=== PATIENT | female | born 1955 | race Caucasian/White ===

== ENCOUNTER 2020-11-13 05:12 | Observation (INO) ==
--- NOTE | 2020-10-23 16:20 | PAT Medication Instructions ---
Medication Instructions Date of Service October 23, 2020 Home Medications Medication Instructions Recorded Jeffy Mccracken #1 ea 10/17/20 celecoxib 200 mg capsule 200 mg PO QAM ezetimibe 10 mg tablet 10 mg PO QAM fluticasone furoate 100 mcg-vilanterol 25 mcg/dose inhalation powder 1 inh INHALATION HS hydroxychloroquine 200 mg tablet 400 mg PO QAM montelukast 10 mg tablet 10 mg PO HS tizanidine 2 mg capsule 2 mg PO BID PRN valacyclovir 500 mg tablet 500 mg PO DAILY PRN Reservital 250 mg PO DAILY ascorbic acid (vitamin C) [Vitamin C] 1 g PO DAILY calcium carbonate [Tums] 300 mg PO BID cholecalciferol (vitamin D3) [Vitamin D3] 100 mcg PO QAM coenzyme Q10 [Co Q-10] 100 mg PO DAILY glucos sul [id number]-C-Mn [Glucosamine Chondroitin] 1 cap PO DAILY loratadine-pseudoephedrine [Claritin-D 12 Hour] 1 tab PO DAILY magnesium 500 mg PO DAILY yt-cf-meqkq-lutein-herbal 293 [Alive Women's 50 Plus] 1 tab PO DAILY omega-3 fatty acids [[place] 3] 1,000 mg PO DAILY ASK your surgeon for instructions celecoxib 200 mg capsule 200 mg PO QAM ASK your prescriber and surgeon hydroxychloroquine 200 mg tablet 400 mg PO QAM STOP taking 2 weeks before surgery (or as soon as possible if surgery is within 2 weeks) Reservital 250 mg PO DAILY coenzyme Q10 [Co Q-10] 100 mg PO DAILY glucos sul [id number]-cxa-fobqz-C-Mn [Glucosamine Chondroitin] 1 cap PO DAILY ut-es-byuwp-lutein-herbal 293 [Alive Women's 50 Plus] 1 tab PO DAILY omega-3 fatty acids [[place] 3] 1,000 mg PO DAILY DO NOT take the morning of surgery tizanidine 2 mg capsule 2 mg PO BID PRN ascorbic acid (vitamin C) [Vitamin C] 1 g PO DAILY calcium carbonate [Tums] 300 mg PO BID cholecalciferol (vitamin D3) [Vitamin D3] 100 mcg PO QAM loratadine-pseudoephedrine [Claritin-D 12 Hour] 1 tab PO DAILY magnesium 500 mg PO DAILY Take morning of surgery With a small sip of water, OTHERWISE NOTHING TO EAT OR DRINK AFTER MIDNIGHT: ezetimibe 10 mg tablet 10 mg PO QAM valacyclovir 500 mg tablet 500 mg PO DAILY PRN (if needed) Take evening before surgery fluticasone furoate 100 mcg-vilanterol 25 mcg/dose inhalation powder 1 inh INHALATION HS montelukast 10 mg tablet 10 mg PO HS tizanidine 2 mg capsule 2 mg PO BID PRN (if needed) valacyclovir 500 mg tablet 500 mg PO DAILY PRN (if needed) calcium carbonate [Tums] 300 mg PO BID Other Notes If you have any questions please call us at [phone] or [phone] or [phone] or [phone]
--- NOTE | 2020-10-26 11:50 | Anesthesiology Consultation ---
Date of Service October 26, 2020 Assessment & Plan (1) Encounter for pre-operative examination: COVID screening: Per assessment on 10/26: Travel screen negative, no known COVID- 19 positive contacts or current COVID-19 related symptoms. Patient vaccinated. Surgeon arranging preop COVID testing. Awaiting results. Chart Review Chart Review: Acceptable Risk for Surgery and Patient seen in Pre Admission Testing Teaching & Discussion Pre-Anesthesia Teaching/Discussion Notes: Instructed NPO after midnight before surgery,except medications with 15 cc of water. Medication instructions pr ovided according to the PAT guidelines. History Surgery Operation Date: 11/13/20 10:45 Proposed Procedures p Left Total Hip Arthroplasty - Donte Ferguson MD Height/Weight Height: 5 ft 3 in Weight: 80.1 kg Allergies Allergy/AdvReac Type Severity Reaction Status Date / Time latex Allergy Intermediate Rash Unverified 10/26/20 12:06 bacitracin Allergy Unknown Rash Verified 10/23/20 11:19 [From Neosporin ([id number])] cefuroxime [From Ceftin] Allergy Unknown Anaphylaxis Verified 10/23/20 11:19 ciprofloxacin [From Cipro] Allergy Unknown Hives Verified 10/23/20 11:19 levofloxacin [From Levaquin] Allergy Unknown Hives Verified 10/23/20 11:19 neomycin Allergy Unknown Rash Verified 10/23/20 11:19 [From Neosporin ([id number])] polymyxin B Allergy Unknown Rash Verified 10/23/20 11:19 [From Neosporin ([id number])] sulfamethoxazole Allergy Unknown Airway Verified 10/26/20 12:06 [From Bactrim] edema/rash trimethoprim [From Bactrim] Allergy Unknown Airway Verified 10/26/20 12:06 edema/rash amoxicillin AdvReac Unknown Vomiting Verified 10/26/20 12:06 clavulanic acid AdvReac Unknown Vomiting Verified 10/26/20 12:06 [From Augmentin] lovastatin AdvReac Unknown Cramping Verified 10/26/20 12:06 of the Muscles Medications Home Medications Medication Instructions Recorded Confirmed Last Taken Wheeled Walker #1 ea 10/17/20 10/23/20 Unknown celecoxib 200 mg capsule 200 mg PO QAM 10/17/20 10/23/20 Unknown ezetimibe 10 mg tablet 10 mg PO QAM 10/17/20 10/23/20 Unknown fluticasone furoate 100 1 inh INHALATION HS 10/17/20 10/23/20 Unknown mcg-vilanterol 25 mcg/dose inhalation powder hydroxychloroquine 200 mg tablet 400 mg PO QAM 10/17/20 10/23/20 Unknown montelukast 10 mg tablet 10 mg PO HS 10/17/20 10/23/20 Unknown tizanidine 2 mg capsule 2 mg PO BID PRN 10/17/20 10/23/20 Unknown valacyclovir 500 mg tablet 500 mg PO DIRECTED PRN 10/17/20 10/26/20 Unknown ascorbic acid (vitamin C) [Vitamin 1 g PO DAILY 10/23/20 10/23/20 Unknown C] calcium carbonate [Tums] 300 mg PO BID PRN 10/23/20 10/23/20 Unknown cholecalciferol (vitamin D3) 4,000 unit PO QAM 10/23/20 10/26/20 Unknown [Vitamin D3] coenzyme Q10 [Co Q-10] 100 mg PO DIRECTED 10/23/20 10/26/20 Unknown glucos sul 7BNn-lwv-wytpk-C-Mn 2 cap PO DAILY 10/23/20 10/26/20 Unknown [Glucosamine Chondroitin] loratadine-pseudoephedrine 1 tab PO DAILY 10/23/20 10/23/20 Unknown [Claritin-D 12 Hour] magnesium 500 mg PO DAILY 10/23/20 10/23/20 Unknown dt-sy-rhzoa-lutein-herbal 293 1 tab PO DAILY 10/23/20 10/23/20 Unknown [Alive Women's 50 Plus] omega-3 fatty acids [[place] 3] 1,000 mg PO DAILY 10/23/20 10/23/20 Unknown Tylenol 500 mg PO DAILY PRN 10/26/20 10/26/20 Unknown resveratrol 250 mg PO DAILY 10/26/20 10/26/20 Unknown Past Medical History Medical History Arthritis of left hip Asthma Well controlled per pt Cervical spondylosis GERD (gastroesophageal reflux disease) Controlled Hyperlipidemia Leg length discrepancy Per records, pt unaware Mediastinal mass Anterior mediastinal mass (dx 2008) s/p regular CT scans to monitor (stable) Osteoarthritis Periodic limb movement disorder Septic bursitis Left elbow (2016) > was aspirated and + MRSA Sjogren's syndrome + hydroxychloroquine Exercise / Class Metabolic Activity III < 4 Walking/Shop/Light housework Past Surgical History Surgical History History of adenoidectomy History of cholecystectomy History of colonoscopy History of tonsillectomy History of tooth extraction Past Anesthesia History No Family Hx of Anesthesia Complications and Other ("woke up too soon" in recovery) History of PONV No Hx of PONV and No Hx of Motion Sickness Social History Smoking Status: Current every day smoker tobacco type: cigarettes Smoking cigarettes per day: 1/2 PPD (tobacco use x 42 years) Do You Dip or Chew Tobacco: No Hx Alcohol Use: No Hx Substance Use: No substance use type: does not use Review of Systems No snoring. Palpitations now much less frequent. Rare chronic, cough. Patient denies chest pain, shortness of breath, fever, chills, wheezing. Physical Exam Vital Signs VITALS BP 102/58 P 94 TEMP 98.0 SP02 97%RA RESP 18 PHYSICAL Full cervical extension range of motion. Full TMJ range of motion. TMD 3 finger breaths Mallampati Score 3 Dentition: several missing molars, + crowns (several including upper/lower si ashwini) Lungs: clear throughout to auscultation Cardiac: regular rate and rhythm, no murmurs noted Spine: normal Carotid arteries: negative bruit Extremities: no edema Lab Results Anesthesia Preop Results Results Anesthesia Widget: WBC 10.49 K/uL (4.8-10.8) 10/26/20 Hgb 15.3 g/dL (12.0-16.0) 10/26/20 Hct 46.6 % (37-47) 10/26/20 Plt 305 K/uL (130-400) 10/26/20 Na 142 mmol/L (136-145) 10/26/20 K 4.5 mmol/L (3.5-5.1) 10/26/20 Cl 110 mmol/L (98-107) H 10/26/20 CO2 26 mmol/L (21-32) 10/26/20 BUN 15 mg/dl (7-18) 10/26/20 Creat 0.76 mg/dl (0.6-1.2) 10/26/20 Glucose Level 95 mg/dl (70-99) 10/26/20 PT 9.8 Seconds (9.0-12.0) 10/26/20 PTT 30.5 Seconds (21.0-31.0) 10/26/20 INR 1.0 (0.9-1.1) 10/26/20 Blood Type B Positive 10/26/20 Antibody Screen NEGATIVE 10/26/20 Testing Electrocardiogram Date: 10/26/20 Findings: + NSR @ (90) Chest X-Ray Date: 10/26/20 No pneumothorax. No pleural effusion. Bilateral lungs remain mildly hyperinflated with flattening in the right and left hemidiaphragms. No large infiltrates or consolidative lesions are seen. Few linear densities at the left base might represent subsegmental atelectasis or scarring. Cardiomediastinal silhouette is within normal limits in size. Osseous structures: Degenerative changes of the spine. IMPRESSION: COPD pattern. Small atelectasis at the left base. No large infiltrates or consolidative lesions. Other Testing 7 day Holter monitor (09/19-09/25/20): Minimum HR 78bpm. Max HR 153bpm. Avg HR 111bpm. Predominant underlying sinus rhythm. Isolated SVEs were occasinal. No SVE Couplets or SVE triplets were present. Isolated VEs were rare. No VE couplets or VE triplets were present. CT Chest (10/30/17): Stable anterior mediastinal mass (1.5 x 2.1 cm. This mass was compared to [address] based on CT report from 2012. This was considered to be stable from [address] report). A few tiny nodular foci are new/more obvious than prior CT. Consider a follow-up chest CT in 1 year if there are high risk factors.
--- NOTE | 2020-11-06 07:23 | History and Physical Report ---
DATE OF ADMISSION: 11/13/2020 CHIEF COMPLAINT: Left hip pain. 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 She has a 5-year history of gradually increasing left hip pain and discomfort that has gotten significantly worse over the past 6 months. She was initially treated for some bursitis. She has seen several rheumatologists over time and they have been trying to manage this with medicines. This has become less successful. She had been on Plaquenil as well as Celebrex. Pain has gradually gotten worse over time. She has been through therapy, which initially helped, but has made it worse more recently. She now presents for possible surgical treatment. She has got groin pain, thigh pain radiating down to her knee. She limps more as the day goes on. PAST MEDICAL HISTORY: Significant for, 1. Rheumatoid arthritis, managed as above. 2. Depression. 3. Herpes. 4. Elevated cholesterol. 5. Asthma. 6. Sjogren syndrome. 7. Obesity. PAST SURGICAL HISTORY: Includes, 1. Tonsillectomy. 2. Cholecystectomy. ALLERGIES: MULTIPLE AND LISTED IN HER MEDICAL RECORD. CURRENT MEDICATIONS: Include, 1. Breo Ellipta. 2. Montelukast. 3. Zetia. 4. Celebrex. 5. Plaquenil. 6. Zanaflex. 7. Valacyclovir. SOCIAL HISTORY: A 64-year-old female. 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 She is . Does not drink. FAMILY HISTORY: Significant for lupus, thyroid disease, lung cancer, bowel cancer, coronary artery disease and diabetes. REVIEW OF SYSTEMS: Significant for multiple musculoskeletal aches and pains. She does have Sjogren disease. No chest pain or shortness of breath. No history of DVT or PE. No known bleeding problems. PHYSICAL EXAMINATION: GENERAL: She is a pleasant middle-aged female, looks to be in pretty good health. HEENT: Benign. NECK: Supple. No lymphadenopathy. LUNGS: Clear to auscultation. HEART: Regular rate and rhythm. ABDOMEN: Soft, nontender, nondistended. EXTREMITIES: Grossly neurovascularly intact except as follows: Examination of left hip and leg reveals the patient walks with an antalgic gait. She uses a cane. She is about 0.5 cm short on the left side compared to the right. She has a very stiff hip with any attempted internal rotation. This re-creates her pain. Negative straight leg raise. Minor tenderness over the pes tendons. Some slight lateral tenderness over the trochanteric bursa as well. No knee effusion. X-RAYS: X-rays of the left hip are reviewed. She has advanced left hip DJD. She has complete loss of her joint space. She has got cystic changes on both sides of the joint consistent with inflammatory arthritis. 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 She has failed conservative treatment and would like to have her left hip fixed. We talked about treatment options, and she would like to proceed with left hip replacement. I did tell her she has got some other issues and it is not going to fix all of her pains. She does have some fibromyalgia, which makes her response a little bit less predictable. In any case, she has got significant arthritis and I think this will make a big difference for her. PLAN: We are going to take her to the operating room and do left total hip replacement. The risks and benefits of this procedure were explained to the patient including but not limited to DVT, PE, , infection, neurological injury, vascular injury, bleeding problem, pain, limited range of motion, stiffness, failure to relieve her symptoms, incomplete relief of symptoms, need for further surgery in the future, fracture, leg length inequality, nerve palsy, etc. The patient understands and desires to proceed. Informed consent was obtained. I do think she has got some underlying knee disease, which it may or may not help. She is fully aware that she may need treatment of this in the future. We did talk to her about her medicines and she can stay on all her current rheumatological medicines. We will use aspirin for DVT prophylaxis. She apparently does have ALLERGY TO CEPHALOSPORINS and we will use vancomycin preoperatively. She is planning to be discharged to home likely with some home health. Job ID: [id number] [facility]
[2020-11-13] MEDS ORDERED: LR 500ML BOLUS, THEN 15ML/HR IV SCH (06:00)
[2020-11-13] MEDS ORDERED: GABAPENTIN 300 MG CAP PO SCH (06:00)
[2020-11-13] MEDS ORDERED: VANCOMYCIN HCL 1,250 MG in SODIUM CHLORIDE 0.9% 250 ML IV SCH ×2 (06:00→18:00)
[2020-11-13] MEDS ORDERED: TRANEXAMIC ACID 1,000 MG **IV Pre-op IV SCH (06:00)
[2020-11-13] MEDS ORDERED: Scopolamine 1 MG TDSY TD SCH (06:00)
[2020-11-13] MEDS ORDERED: FAMOTIDINE 20 MG TAB PO SCH (06:00)
[2020-11-13] MEDS ORDERED: LR 60ML/HR IV SCH (06:00)
[2020-11-13] MEDS ORDERED: ACETAMINOPHEN 500 MG TAB PO SCH (06:00)
[2020-11-13] MEDS ORDERED: BUPIVACAINE 0.5 % 5 MG/1 ML PF 10ML VIAL ONE (06:21)
[2020-11-13] MEDS ORDERED: fentaNYL citrate 100 MCG/2 ML VIAL ONE (06:23)
[2020-11-13] MEDS ORDERED: MIDAZOLAM HCL 1 MG/ML 2ML VIAL ONE (06:23)
[2020-11-13] MEDS ORDERED: MoRPHine SULFATE PF 1 MG/ML 10 ML AMP/VIAL ONE (06:23)
[2020-11-13] MEDS ORDERED: BUPIVACAINE/EPINEPHRINE 0.5% MPF 1:200,000 30 ML VIAL ONE (06:40)
--- NOTE | 2020-11-13 06:51 | History & Physical Bridge Note ---
Date of Service November 13, 2020 History & Physical Bridge Note I have examined the patient, reviewed the History & Physical and in the interval since the performance of the History & Physical I have noted the following changes of clinical significance: no changes noted
[2020-11-13] MEDS ORDERED: PHENYLEPHRINE 100MCG/ML 5ML SYR ONE (07:18)
[2020-11-13] MEDS ORDERED: ONDANSETRON INJ 2 MG/ML 2 ML VIAL ONE ×2 (07:18→09:08)
[2020-11-13] MEDS ORDERED: PROPOFOL IV EMULSION 10 MG/ML 20 ML VIAL IV ONE (07:20)
[2020-11-13] MEDS ORDERED: NALOXONE HCL 0.4 MG/1 ML VIAL/CARP IV PRN ×2 (07:23→11:19)
[2020-11-13] MEDS ORDERED: diphenhydrAMINE 50 MG/ML VIAL IV PRN (07:23)
[2020-11-13] MEDS ORDERED: LACTATED RINGER'S 500 ML IV PRN (07:23)
[2020-11-13] MEDS ORDERED: NALOXONE HCL 0.08 MG in SYRINGE 1.8 ML IV PRN (07:23)
[2020-11-13] MEDS ORDERED: NALOXONE HCL 1 MG in SODIUM CHLORIDE 0.9% 1000ML 1,000 ML IV PRN (07:23)
[2020-11-13] MEDS ORDERED: ePHEDrine sulfate 50 MG/ML AMP IV PRN (07:23)
[2020-11-13] MEDS ORDERED: SODIUM CHLORIDE 0.9% 1000ML 1,000 ML IV SCH (07:30)
[2020-11-13] MEDS ORDERED: DC INTRASPINAL MORPHINE SCH (07:30)
[2020-11-13] MEDS ORDERED: NO NARCOTICS OR SEDATIVES SCH (07:30)
[2020-11-13] MEDS ORDERED: PHENYLEPHRINE HCL 10 MG/ML VIAL ONE (07:37)
--- NOTE | 2020-11-13 08:41 | Operative Report ---
Post Operative Report Pre & Post Diagnosis Operation Date: 11/13/20 07:00 Pre-Op Diagnosis: Left Hip Osteoarthritis Post-Op Diagnosis: Left Hip Osteoarthritis I identified the patient and participated in the time-out.: Yes Procedure Operation Date: 11/13/20 07:00 Actual Procedures p Left Total Hip Arthroplasty(Left) - Donte Ferguson MD Surgeon Donte Ferguson MD Software Support Analyst MIRIAM Collins Estimated Blood Loss 200 Findings Consistent with Post-Op Diagnosis Operative findings were advanced left hip DJD. She had grade 4 euvg-fw-gwnr disease the femoral head and acetabulum. Small anterior acetabular osteophyte. Moderate-sized joint effusion. She had osteophytes around the femoral head as well. Fluids 1000 cc Specimens Left femoral head sent for pathology Drains None Anesthesia Type Spinal MAC Complications none Disposition Accompanied Patient To Recovery: Yes Disposition: Recovery Room Indications Patient is a 64-year-old female has had a several year history of increasing left hip pain discomfort that got significantly worse over the past year. She is got to the point where she had use a cane to get around. X-ray showed advanced left hip DJD. She elected proceed with surgical treatment. Description of Procedure Operative implants consist of: 1. Biomet G7 size 50 mm acetabular shell. 2. [place] hole twine reeling machine operator. 3. 6.5 cancellous acetabular screws 1 of 35 mm length 1 to 25 mm length. 4. Highly cross-linked polyethylene liner with a 50 mm outer diameter, 36 mm inner diameter with a mukherjee placed inferior and posterior. 5. Depuy [place] size 8 short neck/125 degree angle femoral neck. 6. +5/36 mm ceramic articular ball. The patient was taken to the operating, identified, placed on the operating table supine position but a contractors were properly padded. IV antibiotics tried by anesthesia team. Spinal anesthetic had been implemented holding area. Max catheter was placed in sterile fashion. The patient was then placed in the right lateral decubitus position. Axillary roll was placed. Stulberg hip positioner was used for positioning. Left hip and leg were then prepped and draped in usual sterile fashion. A posterior lateral approach of the left hip was then performed to a curvilinear incision centered over the greater trochanter. Sharp dissection got through subcutaneous tissue down to level the IT band gluteal fascia the IT band gluteal fascia then incised longitudinally in line with skin incision. The underlying greater bursa was excised. The piriformis and external rotators and the posterior hip capsule were then released from the posterior aspect hip joint as a single layer. Great care was taken throughout the procedure protect the sciatic nerve at all times. Hip was internally rotated and dislocated. Femoral neck osteotomy cut was made with Final Cut 10 mm above the lesser trochanter. Femoral head was removed and sent for pathology. The femur was retracted anteriorly. Attention drawn the acetabulum. The acetabular labrum was excised. The pulmonary fat was excised. Sequential reaming the acetabular was then performed begin with size 43 and progressing up to 49. I then did reamed a little bit with a 50 reamer and then placed a 50 mm Biomet G7 acetabular shell in about 40 degrees lateral opening and 20 degrees of anteversion. It was fixed with two 6.5 cancellous acetabular screws. A trial liner was placed. Attention drawn the femur. The proximal femur was entered with a cookie-cutter followed by canal finder. I then broached with the 8 broach. I could medially quite get that down to the Calcar. She had a very good cancellous of bony bed and we elected to just use this implant. I then trialed the hip with the 125 degree short neck angle stem and it was fully stable in full extension and external rotation flexion to 9 degrees internal rotation over 50 degrees. I did elect to place a mukherjee inferior and posterior to maximize her stability posteriorly. We elect to place these implants. All soft tissue tension seemed appropriate and leg lengths seem equal. All trial implants were removed. An apex hole twine reeling machine operator was placed but highly cross-linked polyethylene liner with a mukherjee placed inferior and posterior was placed. A DePuy size 8 KLA femoral stem with a short neck was impacted in position. A +5-36 mm ceramic articular ball was placed. Of note we did leave the system just a little proud due to the very tight fit. Hip was located once again found to be stable. Attention drawn toward closing. The wounds irrigated scope soft pulsatile lavage solution. I did inject locally with 60 cc of half percent Marcaine with epinephrine. The posterior capsule and external rotators then repaired through drill holes in the posterior trochanter with #2 Tycron suture in a single layer. The IT band gluteal fascia then closed in 1 PDS suture running fashion the subcutaneous tissues were then closed in 2 layers the deep layer #1 Vicryl suture subcutaneous tissues with 2 Dexon suture in a buried interrupted fashion the skin was closed skin joanna. Leg was then cleaned dried a sterile dressing with Xeroform, 4 x 4's, ABD pad, foam tape was applied. Patient then transferred to the recovery room in stable condition. Patient tolerated procedure well and there were no complications. Arsen Collins, my physician environmental services assistant, was present for the entire procedure. His assistance was essential and required for appropriate patient positioning, prepping and draping, surgical exposure, performing the technical details of the operation, placement the implants, closure of the wound, and placement of the sterile bandage. I attest to the content of the Intraoperative Record and any orders documented therein. Any exceptions are noted below.
--- NOTE | 2020-11-13 09:03 | XRay Report ---
XR hip 1V LT w pelvis CLINICAL HISTORY: Postop left hip arthroplasty COMPARISON: None. DISCUSSION: There are postsurgical changes of a total left hip arthroplasty. The acetabular and femor al components appear well seated. There is no dislocation. There is gas within the soft tissues consi stent with recent surgery. There are overlying skin joanna. A bladder catheter is visualized. IMPRESSION: Postsurgical changes of a total left hip arthroplasty. No evidence of dislocation. ACT 112: Negative or not required by law. Electronically signed by: Chris Harrington M.D. 11/13/2020 9:02 AM
[2020-11-13] MEDS ORDERED: ONDANSETRON INJ 2 MG/ML 2 ML VIAL IV ONE (09:13)
[2020-11-13] MEDS ORDERED: bisacodyL 10 MG SUPP PR PRN (11:19)
[2020-11-13] MEDS ORDERED: ALUMINUM/MAGNESIUM SUSP 30 ML UDC PO PRN (11:19)
[2020-11-13] MEDS ORDERED: MV MN FOLIC LUTEIN HERBAL PO SCH (11:19)
[2020-11-13] MEDS ORDERED: RESVERATROL 250 MG PO SCH (11:19)
[2020-11-13] MEDS ORDERED: ASCORBIC ACID 1000 MG PO SCH (11:19)
[2020-11-13] MEDS ORDERED: MAGNESIUM HYDROXIDE SUSP 30 ML UDC PO PRN (11:19)
[2020-11-13] MEDS ORDERED: [UNRECOGNIZED DRUG - OTHER] PO SCH (11:19)
[2020-11-13] MEDS ORDERED: VANCOMYCIN CONSULT ACTIVE PRN (11:19)
[2020-11-13] MEDS ORDERED: NON-FORMULARY MEDICATION (Glucos Sul 2kcl-Msm-Chond-C-Mn [Glucosamine Chondroitin] 550-30- PO SCH (11:19)
[2020-11-13] MEDS ORDERED: NON-FORMULARY MEDICATION (Coenzyme Q10 [Co Q-10] 100 mg Capsule) PO SCH (11:19)
[2020-11-13] MEDS ORDERED: CALCIUM CARBONATE 500 MG CHEWABLE TAB PO PRN (11:30)
--- NOTE | 2020-11-13 12:48 | Anesthesiology Progress Note ---
Date of Service November 13, 2020 Anesthesia Post Procedure Vital Signs Vital Signs: Temp Pulse Pulse Resp BP BP Pulse Ox 11/13/20 11:50 36.4 C L 84 14 102/62 99 11/13/20 11:23 36.4 C L 79 16 103/65 95 11/13/20 10:51 36.4 C L 80 16 106/66 97 11/13/20 10:25 83 16 103/59 L 97 11/13/20 10:10 36.3 C L 78 16 101/61 99 11/13/20 09:55 78 18 106/61 93 11/13/20 09:45 78 16 102/62 97 11/13/20 09:35 79 15 96/57 L 94 11/13/20 09:25 79 20 91/51 L 95 11/13/20 09:15 79 17 98/55 L 94 11/13/20 09:05 79 16 91/55 L 96 11/13/20 08:55 36.2 C L 84 20 100/54 L 95 11/13/20 08:45 87 21 98/49 L 99 11/13/20 08:35 88 22 95/51 L 99 11/13/20 08:28 36.1 C L 90 14 92/44 L 98 11/13/20 05:45 36.7 C 95 H 18 132/65 95 Pain Intensity Left Other: Pain Intensity: 0 Transfer of Care Handoff Completed per policy Notes Mental Status: alert / awake / arousable and participated in evaluation Patient Amnestic to Procedure: Yes Nausea / Vomiting: adequately controlled Pain: adequately controlled Airway Patency, RR, SpO2: stable & adequate BP & HR: stable & adequate Hydration State: stable & adequate Neuraxial Anesthesia: was administered and sensory block is resolving Anesthetic Complications: no major complications apparent and Pt Satisfied with anesthetic care
[2020-11-13] MEDS: SODIUM CHLORIDE 0.9% 1000ML 1,000 ML IV SCH (12:49)
[2020-11-13] MEDS: ASPIRIN 81 MG ECTAB PO SCH ×2 (12:55→21:58)
[2020-11-13] MEDS: CHOLECALCIFEROL 1,000 UNITS 25 MCG TAB PO SCH (12:56)
[2020-11-13] MEDS: EZETIMIBE 10 MG TABLET PO SCH (12:57)
[2020-11-13] MEDS: DOCUSATE SODIUM 100 MG CAP PO SCH ×2 (12:57→21:58)
[2020-11-13] MEDS: HYDROXYCHLOROQUINE SULFATE 200 MG TAB PO SCH (12:59)
[2020-11-13] MEDS: OMEGA-3 (PURIFIED FISH OIL) 1 GM CAP PO SCH (12:59)
[2020-11-13] MEDS: MAGNESIUM OXIDE 400 MG TAB PO SCH (13:01)
[2020-11-13] MEDS: LORATADINE 10 MG TAB PO SCH (13:01)
[2020-11-13] MEDS: PSEUDOEPHEDRINE HCL 30 MG TAB PO SCH (13:03)
[2020-11-13] MEDS: MULTIVITAMIN TAB PO SCH (13:03)
[2020-11-13] MEDS: ASCORBIC ACID 500 MG TAB PO SCH ×2 (13:07→17:18)
[2020-11-13] MEDS: KETOROLAC 30 MG/ML VIAL IV SCH ×2 (13:16→17:52)
[2020-11-13] MEDS: ACETAMINOPHEN 500 MG TAB PO SCH ×2 (14:07→21:59)
[2020-11-13] MEDS ORDERED: TRANEXAMIC ACID / 0.7% NACL 1,000 MG/100 ML BAG IV SCH (14:30)
[2020-11-13] MEDS: Scopolamine CHECK PATCH PLACEMENT SCH (16:18)
[2020-11-13] MEDS ORDERED: NICOTINE 14 MG/24 HR PATCH TD SCH (17:00)
[2020-11-13] MEDS ORDERED: MONTELUKAST SODIUM 10 MG TABLET PO SCH (21:00)
[2020-11-13] MEDS ORDERED: FLUTICASONE/VILANTEROL 100/25MCG 14 PUFFS/INHALER INH SCH (21:00)
[2020-11-13] MEDS ORDERED: SENNA 8.6 MG TAB PO SCH (21:00)
[2020-11-14] MEDS: Scopolamine CHECK PATCH PLACEMENT SCH ×2 (00:10→09:11)
[2020-11-14] MEDS: SODIUM CHLORIDE 0.9% 1000ML 1,000 ML IV SCH (00:10)
[2020-11-14] MEDS: KETOROLAC 30 MG/ML VIAL IV SCH ×3 (00:11→11:56)
[2020-11-14] MEDS ORDERED: HYDROmorphone INJ 0.5 MG/0.5 ML SYR IV PRN (01:23)
[2020-11-14] MEDS ORDERED: METOCLOPRAMIDE HCL INJ 5 MG/ML 2 ML VIAL IV PRN (01:23)
[2020-11-14] MEDS ORDERED: diphenhydrAMINE Capsule 25 MG CAP PO PRN (01:23)
[2020-11-14] MEDS ORDERED: tiZANidine HCL 4 MG TABLET PO PRN (01:23)
[2020-11-14] MEDS ORDERED: ONDANSETRON INJ 2 MG/ML 2 ML VIAL IV PRN (01:23)
[2020-11-14] MEDS: ACETAMINOPHEN 500 MG TAB PO SCH ×2 (05:39→14:23)
[2020-11-14 05:48] LABS: Basophils # (auto) 0.03 K/uL (0-0.2); Basophils % (auto) 0.3 %; Eosinophils # (auto) 0.26 K/uL (0-0.5); Eosinophils % (auto) 2.3 %; Hematocrit (blood only) 40.9 % (37-47); Hemoglobin 13.2 g/dL (12.0-16.0); Immature Granulocytes # (auto) 0.03 K/uL (0.00-0.02); Immature Granulocytes % (auto) 0.3 %; Lymphocytes # (auto) 1.91 K/uL (1.2-3.4); Lymphocytes % (auto) 17.3 %; Mean Corpuscular Hemoglobin 30.2 pg (25-34); Mean Corpuscular Hgb Conc 32.3 g/dL (32-36); Mean Corpuscular Volume 93.6 fL (80-100); Mean Platelet Volume 9.7 fL (7.4-10.4); Monocytes # (auto) 0.73 K/uL (0.11-0.59); Monocytes % (auto) 6.6 %; Neutrophils # (auto) 8.11 K/uL (1.4-6.5); Neutrophils % (auto) 73.2 %; Platelet Count 222 K/uL (130-400); RDW Coefficient of Variation 13.1 % (11.5-14.5); RDW Standard Deviation 45.4 fL (36.4-46.3); Red Blood Count 4.37 M/uL (4.2-5.4); White Blood Count 11.07 K/uL (4.8-10.8)
[2020-11-14 06:33] LABS: BUN Creatinine Ratio 21.9 (10-20); Calcium 8.2 mg/dl (8.5-10.1); Est GFR (Non-African American) 93.2 ml/min
[2020-11-14] MEDS ORDERED: dexAMETHasone 10 MG in SYRINGE 0 ML IV SCH (08:00)
[2020-11-14] MEDS: traMADol HCL 50 MG TABLET PO PRN ×2 (09:11→14:23)
[2020-11-14] MEDS: LORATADINE 10 MG TAB PO SCH (09:12)
[2020-11-14] MEDS: OMEGA-3 (PURIFIED FISH OIL) 1 GM CAP PO SCH (09:12)
[2020-11-14] MEDS: ASCORBIC ACID 500 MG TAB PO SCH (09:13)
[2020-11-14] MEDS: DOCUSATE SODIUM 100 MG CAP PO SCH (09:13)
[2020-11-14] MEDS: PSEUDOEPHEDRINE HCL 30 MG TAB PO SCH (09:13)
[2020-11-14] MEDS: CHOLECALCIFEROL 1,000 UNITS 25 MCG TAB PO SCH (09:14)
[2020-11-14] MEDS: ASPIRIN 81 MG ECTAB PO SCH (09:15)
[2020-11-14] MEDS: HYDROXYCHLOROQUINE SULFATE 200 MG TAB PO SCH (09:16)
[2020-11-14] MEDS: EZETIMIBE 10 MG TABLET PO SCH (09:16)
[2020-11-14] MEDS: MULTIVITAMIN TAB PO SCH (09:16)
[2020-11-14] MEDS: MAGNESIUM OXIDE 400 MG TAB PO SCH (09:16)
--- NOTE | 2020-11-14 12:41 | Progress Notes ---
DATE: 11/14/2020 SUBJECTIVE: A 64-year-old female postop day #1 from a left hip replacement. She is doing well. Alissa n is controlled. No chest pain or shortness of breath. Not feeling dizzy or lightheaded. OBJECTIVE: VITAL SIGNS: Temperature 36.5. Vital signs stable. GENERAL: Physical examination shows a middle-aged female. She is sitting up in her bedside chair, e ating her lunch. She looks comfortable. LUNGS: Clear to auscultation. HEART: Has a regular rate and rhythm. ABDOMEN: Soft, nontender, nondistended. EXTREMITIES: Grossly neurovascularly intact except as follows. Examination of left hip reveals the dressing to be clean, dry, and intact. Thigh is soft and supple. Hip is located. Leg lengths are e qual. She can dorsiflex and plantarflex her foot appropriately. LABORATORY DATA: Hemoglobin 13.2. Hematocrit 40.9. White cell count 11.07. Electrolytes are stabl e. ASSESSMENT: A 64-year-old female postop day #1 from left hip replacement, doing well. Pain is contr olled. Hip is located. She is neurologically intact. PLAN: 1. DVT prophylaxis include thigh-high TEDs, SCDs, and aspirin twice a day. 2. PT, OT, weightbear as tolerated. Left total hip protocol. 3. Pain control, doing well with current pain regimen. 4. Disposition: Plan to discharge to home with some home health likely later today if does okay in therapy. Job ID: [id number]
--- NOTE | 2020-11-24 10:06 | Discharge Summary ---
Date of Service November 24, 2020 Discharge Data Procedures Performed Operation Date: 11/13/20 07:00 Actual Procedures p Left Total Hip Arthroplasty(Left) - Donte Ferguson MD Hospital Course (1) Status post total replacement of left hip: 65 year old patient admitted on 11/13/20 and underwent total hip arthroplasty. She tolerated the procedure well and there were no complications. Transferred to the PACU post op and later to the orthopedic floor for further care. She was given vancomycin for antibiotic prophylaxis. She was also given ELIZABETH stockings, SCDs, and aspirin for DVT prophylaxis. Hemoglobin, hematocrit, and vital signs were monitored during her hospital stay and remained stable. Did not require any blood transfusions. There were no complications during her hospi hernan stay. By post op day #1 the patient was tolerating a regular diet, pain was reasonably controlled with oral pain medicine, and she was participating in physical therapy. On post op day #1 the patient was discharged home and set up with home health care. She was given printed discharge instructions including prescriptions for extra strength tylenol, aspirin, and tramadol. Continue physical therapy, weight bearing as tolerated. Continue hip precautions. Continue ELIZABETH stockings. Follow up approximately 2 weeks post op or sooner if there are problems or concerns. Coding Level of Care Code None Diagnoses Status post total replacement of left hip Z96.642
== END 2020-11-14 14:56 | disposition home health service (06) ==
LOC: 3E 05:12 → ASU 05:12
DX: Z79.899 Other long term (current) drug therapy; Z20.822 Contact with and (suspected) exposure to COVID-19; Q87.19 Other congenital malformation syndromes predominantly associated with short stature; M16.12 Unilateral primary osteoarthritis, left hip; E66.9 Obesity, unspecified; J45.909 Unspecified asthma, uncomplicated; M06.9 Rheumatoid arthritis, unspecified; Z68.30 Body mass index [BMI] 30.0-30.9, adult

== ENCOUNTER 2024-03-21 05:02 | Observation (INO) ==
--- NOTE | 2023-08-03 15:52 | PAT Medication Instructions ---
Medication Instructions Date of Service August 03, 2023 Home Medications Medication Instructions Recorded Jeffy Mccracken #1 ea 10/17/20 Sawyer Loaiza #1 ea 10/29/20 celecoxib 200 mg capsule (Celebrex) 200 mg PO QAM ezetimibe 10 mg tablet (Zetia) 10 mg PO QAM hydroxychloroquine 200 mg tablet (Plaquenil) 400 mg PO QAM montelukast 10 mg tablet 10 mg PO HS valacyclovir 500 mg tablet 500 mg PO DIRECTED PRN calcium carbonate 300 mg (750 mg) chewable tablet (Tums) 600 mg PO DAILY PRN coenzyme Q10 100 mg capsule (Co Q-10) 100 mg PO DIRECTED resveratrol 250 mg capsule 250 mg PO QAM Arthromax 1 tab PO QAM Cold Care-Herbal Liquid 1 - 2 tsp PO BID PRN Ehr-Herbal Liquid 1 tbsp PO .1-3 X DAILY PRN Gi Complete-Herbal Liquid 1 - 2 tsp PO .2-3 X DAILY PRN Kortislo 1 tbsp PO DAILY Prebiotic/Probiotic For 50+ 1 tab PO QAM Vitamin K2 W/Vitamin K1 1 tab PO Q OTHER DAY acetaminophen 500 mg tablet (Tylenol Extra Strength) 500 - 1,000 mg PO Q8H PRN ascorbic acid (vitamin C) 1,000 mg tablet (Vitamin C) 1 g PO DAILY betamethasone dipropionate 0.05 % topical cream 1 applic topical BID PRN calcium carbonate 600 mg-vitamin D3 12.5 mcg (500 unit) capsule (Calcium 600 with Vitamin D3) 1 cap PO BID clindamycin HCl 300 mg capsule 600 mg PO DIRECTED PRN clotrimazole-betamethasone 1 %-0.05 % topical cream 1 applic topical DIRECTED PRN furosemide 20 mg tablet (Lasix) 20 mg PO QAM PRN ketoconazole 2 % topical cream 1 applic topical DAILY PRN magnesium oxide 500 mg PO DAILY nystatin 100,000 unit/gram topical cream 1 applic topical TID PRN omega 2-oge-egs-fish oil 900 mg-1,400 mg capsule,delayed release 1 cap PO QAM triamcinolone acetonide 0.1 % topical ointment 1 applic topical BID PRN zoledronic acid 5 mg/100 mL in mannitol 5 %-water intravenous piggybck (Reclast) 1 ea IV duloxetine 60 mg capsule,delayed release 60 mg PO QPM fluticasone furoate 200 mcg-vilanterol 25 mcg/dose inhalation powder (Breo Ellipta) 1 inh inhalation DAILY multivitamin 1 tab PO QAM pseudoephedrine-DM 60 mg-30 mg capsule 1 cap PO HS PRN Continue as directed fluticasone furoate 200 mcg-vilanterol 25 mcg/dose inhalation powder (Breo Ellipta) 1 inh inhalation DAILY clindamycin HCl 300 mg capsule 600 mg PO DIRECTED PRN(if needed) valacyclovir 500 mg tablet 500 mg PO DIRECTED PRN(if needed) ASK your surgeon for instructions celecoxib 200 mg capsule (Celebrex) 200 mg PO QAM ASK your prescriber and surgeon hydroxychloroquine 200 mg tablet (Plaquenil) 400 mg PO QAM zoledronic acid 5 mg/100 mL in mannitol 5 %-water intravenous piggybck (Reclast) 1 ea IV STOP taking 2 weeks before surgery (or as soon as possible if surgery is within 2 weeks) coenzyme Q10 100 mg capsule (Co Q-10) 100 mg PO DIRECTED resveratrol 250 mg capsule 250 mg PO QAM Arthromax 1 tab PO QAM Cold Care-Herbal Liquid 1 - 2 tsp PO BID PRN Ehr-Herbal Liquid 1 tbsp PO .1-3 X DAILY PRN Gi Complete-Herbal Liquid 1 - 2 tsp PO .2-3 X DAILY PRN Kortislo 1 tbsp PO DAILY Vitamin K2 W/Vitamin K1 1 tab PO Q OTHER DAY omega 5-glk-mzq-fish oil 900 mg-1,400 mg capsule,delayed release 1 cap PO QAM STOP taking 24 hours before surgery betamethasone dipropionate 0.05 % topical cream 1 applic topical BID PRN clotrimazole-betamethasone 1 %-0.05 % topical cream 1 applic topical DIRECTED PRN ketoconazole 2 % topical cream 1 applic topical DAILY PRN nystatin 100,000 unit/gram topical cream 1 applic topical TID PRN triamcinolone acetonide 0.1 % topical ointment 1 applic topical BID PRN DO NOT take the morning of surgery calcium carbonate 300 mg (750 mg) chewable tablet (Tums) 600 mg PO DAILY PRN Prebiotic/Probiotic For 50+ 1 tab PO QAM ascorbic acid (vitamin C) 1,000 mg tablet (Vitamin C) 1 g PO DAILY calcium carbonate 600 mg-vitamin D3 12.5 mcg (500 unit) capsule (Calcium 600 with Vitamin D3) 1 cap PO BID furosemide 20 mg tablet (Lasix) 20 mg PO QAM PRN magnesium oxide 500 mg PO DAILY multivitamin 1 tab PO QAM Take morning of surgery With a small sip of water, OTHERWISE NOTHING TO EAT OR DRINK AFTER MIDNIGHT: ezetimibe 10 mg tablet (Zetia) 10 mg PO QAM acetaminophen 500 mg tablet (Tylenol Extra Strength) 500 - 1,000 mg PO Q8H PRN (if needed) Take evening before surgery montelukast 10 mg tablet 10 mg PO HS acetaminophen 500 mg tablet (Tylenol Extra Strength) 500 - 1,000 mg PO Q8H PRN (if needed) calcium carbonate 600 mg-vitamin D3 12.5 mcg (500 unit) capsule (Calcium 600 with Vitamin D3) 1 cap PO BID duloxetine 60 mg capsule,delayed release 60 mg PO QPM pseudoephedrine-DM 60 mg-30 mg capsule 1 cap PO HS PRN(if needed) Other Notes If you have any questions please call us at [phone] or [phone] or [phone] or [phone]
--- NOTE | 2023-08-06 11:02 | Anesthesiology Consultation ---
Date of Service August 06, 2023 Assessment & Plan (1) Encounter for pre-operative examination: - Infectious disease screening: Per assessment on 08/06/23: No known infectious disease contacts or current infectious disease symptoms. No noted recent Covid positive test result. - Outpatient joint assessment: Pt currently scheduled for inpatient pathway. If surgeon requests review for outpatient joint pathway, patient is not recommended candidate for outpatient joint program from anesthesia standpoint based upon available information. - S/P Left JOSÉ (11/13/20): SAB L3-4, 1 attempt at [facility] - Patient concern: Patient reports multiple joint/lumbar pain r/t hx of left knee popliteal ruptured cyst, DDD, cervical stenosis. Requests caution with positioning/transfer. - Pulmonary televisit (06/11/23): "1. From asthma perspective, patient seems to be well-controlled. I would continue with the current regimen of Breo to be used once daily. She has access to albuterol however she has not used it in past several months. 2. Patient has frequent bronchitis and feels like her chest has not cleared since treatment of last bronchitis in February. She has productive cough, weight loss and night sweats. She is immunosuppressed on background of hydroxychloroquine use along with structural lung disease. I think it is reasonable to pursue imaging of chest and microbiological data to look for active mycobacterial lung disease. I ordered sputum x3 for AFB." - Pulmonary note (08/17/23): "Received request for amberly-operative optimization from anesthesia for upcoming hip surgery. I attempted contacting patient over her home and mobile phone numbers. Could not get through to the patient.. AFB testing negative from 08/10, 08/12 and 08/13 so far. Will need a 4-6 week time for these to finalize. She has an upcoming appointment with me on 08/23. Will discuss need for further workup at that appointment based on patient's clinical course." - Spoke with Yoli with [facility] (Infection Prevention & Control) 08/18/23. She states that since AFB sputum cultures will still be preliminary at time of current DOS (if we are keeping patient as scheduled), airborne isolation precautions would be needed. Reviewed with Dr. Tam- advised to discuss fu rther with surgeon. Evelyn at surgeon's office made aware > she states that surgeon wishes to postpone surgery until AFB cultures have finalized. Made patient aware (via phone) 08/18/23 of recommendations to postpone- she voiced understanding. Chart Review Chart Review: Patient seen in Pre Admission Testing Teaching & Discussion Pre-Anesthesia Teaching/Discussion Notes: Instructed NPO after midnight before surgery,except medications with 15 cc of water. Medication instructions provided according to the PAT guidelines. History Surgery Operation Date: 08/25/23 08:50 Proposed Procedures p Right Total Hip Arthroplasty - Donte Ferguson MD Height/Weight Height: 5 ft 3 in Weight: 77.4 kg Allergies Allergy/AdvReac Type Severity Reaction Status Date / Time cefuroxime [From Ceftin] Allergy Severe Anaphylaxis/hives/Anabela Verified 08/03/23 10:28 syndrome sulfamethoxazole Allergy Severe Airway Verified 08/03/23 10:28 [From Bactrim] edema/rash trimethoprim [From Bactrim] Allergy Severe Airway Verified 08/03/23 10:28 edema/rash bacitracin Allergy Intermediate Itchy rash Verified 08/03/23 10:28 [From Neosporin ([id number])] ciprofloxacin [From Cipro] Allergy Intermediate Hives/itchy Verified 08/03/23 10:28 latex Allergy Intermediate skin Verified 08/03/23 10:28 irritation from "Band-aids" levofloxacin [From Levaquin] Allergy Intermediate Hives/itchy Verified 08/03/23 10:28 neomycin Allergy Intermediate Itchy rash Verified 08/03/23 10:28 [From Neosporin ([id number])] polymyxin B Allergy Intermediate Itchy rash Verified 08/03/23 10:28 [From Neosporin ([id number])] amoxicillin AdvReac Severe Vomiting Verified 08/03/23 10:28 clavulanic acid AdvReac Severe Vomiting Verified 08/03/23 10:28 [From Augmentin] lovastatin AdvReac Intermediate Cramping Verified 08/03/23 10:28 of the Muscles cheap metal Allergy Intermediate skin Uncoded 08/03/23 10:29 irritation Medications Home Medications Medication Instructions Recorded Confirmed Last Taken Wheeled Walker #1 ea 10/17/20 06/04/23 Unknown celecoxib 200 mg capsule (Celebrex) 200 mg PO QAM 10/17/20 08/03/23 06/15/23 ezetimibe 10 mg tablet (Zetia) 10 mg PO QAM 10/17/20 08/03/23 06/15/23 hydroxychloroquine 200 mg tablet 400 mg PO QAM 10/17/20 08/03/23 06/15/23 (Plaquenil) montelukast 10 mg tablet 10 mg PO HS 10/17/20 08/03/23 06/14/23 valacyclovir 500 mg tablet 500 mg PO DIRECTED PRN Cold 10/17/20 08/03/23 Unknown Sores calcium carbonate 300 mg (750 mg) 600 mg PO DAILY PRN Acid Reflux 10/23/20 08/03/23 11/10/20 02:00 chewable tablet (Tums) coenzyme Q10 100 mg capsule (Co 100 mg PO DIRECTED 10/23/20 08/03/23 11/02/20 10:00 Q-10) resveratrol 250 mg capsule 250 mg PO QAM 10/26/20 08/03/23 06/15/23 Sawyer Loaiza #1 ea 10/29/20 06/04/23 Unknown Arthromax 1 tab PO QAM 06/15/23 08/03/23 06/15/23 Cold Care-Herbal Liquid 1 - 2 tsp PO BID PRN NEEDED 06/15/23 08/03/23 Unknown Ehr-Herbal Liquid 1 tbsp PO .1-3 X DAILY PRN . 06/15/23 08/03/23 06/15/23 Gi Complete-Herbal Liquid 1 - 2 tsp PO .2-3 X DAILY PRN 06/15/23 08/03/23 Unknown NEEDED Kortislo 1 tbsp PO DAILY 06/15/23 08/03/23 06/15/23 Prebiotic/Probiotic For 50+ 1 tab PO QAM 06/15/23 08/03/23 06/15/23 Vitamin K2 W/Vitamin K1 1 tab PO Q OTHER DAY 06/15/23 08/03/23 06/14/23 acetaminophen 500 mg tablet 500 - 1,000 mg PO Q8H PRN 06/15/23 08/03/23 Unknown (Tylenol Extra Strength) ARTHRITIS PAIN ascorbic acid (vitamin C) 1,000 mg 1 g PO DAILY 06/15/23 08/03/23 06/15/23 tablet (Vitamin C) betamethasone dipropionate 0.05 % 1 applic topical BID PRN SKIN RASH 06/15/23 08/03/23 Unknown topical cream calcium carbonate 600 mg-vitamin 1 cap PO BID 06/15/23 08/03/23 06/15/23 08:00 D3 12.5 mcg (500 unit) capsule (Calcium 600 with Vitamin D3) clindamycin HCl 300 mg capsule 600 mg PO DIRECTED PRN 1 HR 06/15/23 08/03/23 Unknown PRIOR TO DENTAL WORK. clotrimazole-betamethasone 1 1 applic topical DIRECTED PRN 06/15/23 08/03/23 Unknown %-0.05 % topical cream GROIN & FINGERS NEEDED furosemide 20 mg tablet (Lasix) 20 mg PO QAM PRN Fluid Retention 06/15/23 08/03/23 06/13/23 ketoconazole 2 % topical cream 1 applic topical DAILY PRN RIGHT 06/15/23 08/03/23 Unknown MIDDLE FINGER, FUNGAL INFECTION magnesium oxide 500 mg PO DAILY 06/15/23 08/03/23 06/15/23 nystatin 100,000 unit/gram topical 1 applic topical TID PRN Skin 06/15/23 08/03/23 Unknown cream Irritation omega 3-pzc-nju-fish oil 900 1 cap PO QAM 06/15/23 08/03/23 06/15/23 mg-1,400 mg capsule,delayed release triamcinolone acetonide 0.1 % 1 applic topical BID PRN RED, 06/15/23 08/03/23 Unknown topical ointment RAISED & ITCHY SKIN RASH zoledronic acid 5 mg/100 mL in 1 ea IV YEARLY 06/15/23 08/03/23 03/19/23 mannitol 5 %-water intravenous piggybck (Reclast) duloxetine 60 mg capsule,delayed 60 mg PO QPM 08/03/23 08/03/23 Unknown release fluticasone furoate 200 1 inh inhalation DAILY 08/03/23 08/03/23 Unknown mcg-vilanterol 25 mcg/dose inhalation powder (Breo Ellipta) multivitamin 1 tab PO QAM 08/03/23 08/03/23 Unknown pseudoephedrine-DM 60 mg-30 mg 1 cap PO HS PRN Cough 08/03/23 08/03/23 Unknown capsule Past Medical History Medical History Anxiety and depression Arthritis Asthma Cervical spinal stenosis Cervical spondylosis Chronic cough COPD (chronic obstructive pulmonary disease) Per S records Degenerative disc disease DJD (degenerative joint disease) of knee GERD (gastroesophageal reflux disease) Hyperlipidemia Mediastinal mass Anterior mediastinal mass (dx 2008) s/p CT scans to monitor Stable, most recent CTS 06/2023- enlarged lymph node in the anterior mediastium remains unchanged and likely benign compared to 03/2021 CTS per report Osteoarthritis Palpitations Occasional palpitations, 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)- triggered events correlated to sinus rhythm and sensed PACs Periodic limb movement disorder Restless leg syndrome Septic bursitis Left elbow (2016) > was aspirated and + MRSA Sjogren's syndrome + hydroxychloroquine Exercise / Class Metabolic Activity II 4-5 Yardwork/Stairs/Walk up hill (one FS: No CP, rare mild SOB) Past Family History Family History Other No family history of adverse response to anesthesia Past Surgical History Surgical History History of cholecystectomy History of colonoscopy History of tonsillectomy and adenoidectomy History of tooth extraction History of total hip arthroplasty Left JOSÉ (11/13/20): SAB L3-4, 1 attempt at [facility] Past Anesthesia History No Hx of Anesthesia Complications and No Family Hx of Anesthesia Complications History of PONV No Hx of PONV and Hx of Motion Sickness (Rare) Social History Smoking Status: Current every day smoker tobacco type: cigarettes Smoking cigarettes per day: 10 cig daily Do You Dip or Chew Tobacco: No Hx Alcohol Use: No Hx Substance Use: No substance use type: does not use Review of Systems Occasional palpitations. Chronic cough. Patient denies chest pain, shortness of breath, fever, chills, wheezing. Physical Exam Vital Signs BP 102/58 (manual cuff) P 87 TEMP 98.2 SP02 96%RA RESP 16 Physical Full cervical extension range of motion. Full TMJ range of motion. TMD 3 finger breaths Mallampati Score 3 Dentition: + missing (molars), + crowns Lungs: clear throughout to auscultation Cardiac: regular rate and rhythm, no murmurs noted Spine: normal Carotid arteries: negative bruit Extremities: no LE edema Lab Results Anesthesia Preop Results Results Anesthesia Widget: WBC 13.20 K/ul (4.8-10.8) H 08/06/23 Hgb 14.3 g/dl (12.0-16.0) 08/06/23 Hct 44.4 % (37.0-47.0) 08/06/23 Plt 279 K/uL (130-400) 08/06/23 Na 138 mmol/L (136-145) 08/06/23 K 4.2 mmol/L (3.5-5.1) 08/06/23 Cl 107 mmol/L (98-107) 08/06/23 CO2 24 mmol/L (21-32) 08/06/23 BUN 21 mg/dl (6-23) 08/06/23 Creat 0.80 mg/dl (0.6-1.2) 08/06/23 Glucose Level 85 mg/dl (70-99(Fasting)) 08/06/23 PT 10.4 Seconds (9.0-12.0) 08/06/23 PTT 33 Seconds (21-31) H 08/06/23 INR 0.9 (0.9-1.1) 08/06/23 Blood Type B Positive 08/06/23 Antibody Screen NEGATIVE 08/06/23 Testing Laboratory Results Surgeon made aware of elevated WBC* Pulmonary note (08/17/23): "AFB testing negative from 08/10, 08/12 and 08/13 so far.. Will need a 4-6 week time for these to finalize" Electrocardiogram Date: 08/06/23 NSR at 84bpm. NS STA. No significant change compared to 10/26/2020 per senior system operator comparison. Other Testing 7 day Holter monitor Date: 09/19-09/25/20 Minimum HR 78bpm. Max HR 153bpm. Avg HR 111bpm. Predominant underlying sinus rhythm. Isolated SVEs were occasinal. No SVE Couplets or SVE triplets were present. Isolated VEs were rare. No VE couplets or VE triplets were present. CT Chest Date: 10/30/2017 Stable anterior mediastinal mass (1.5 x 2.1 cm. This mass was compared to [address] based on CT report from 2012. This was considered to be stable from [address] report). A few tiny nodular foci are new/more obvious than prior CT. Consider a follow-up chest CT in 1 year if there are high risk factors. Chest CT Date: 04/03/2021 Tree-in-bud nodules predominantly in the apical right upper lobe and superior segment right lower lobe, slightly more prominent in size and number compared to prior study 10/30/2017, likely chronic infectious or inflammatory process of the small airways such as atypical mycobacterial infection. Approximate 2 x 1.4 cm soft tissue nodule in the anterior mediastinum is stable compared to 10/30/2017, likely benign enlarged lymph node. Chest CT Date: 07/17/2023 Mild atherosclerotic changes. An enlarged lymph node in the anterior mediastinum remains unchanged and likely benign. The patient is status postcholecystectomy. Changes likely representing bronchiolitis and/or postinfectious changes. A few additional discrete sub-6 mm nodules in both lungs appear unchanged. No suspicious nodules are seen. Degenerative changes of the spine. Mild emphysematous changes. A focal area of subpleural nodular scarring is seen in the periphery of the right upper lobe, along the major fissure.
--- NOTE | 2023-09-13 12:09 | History & Physical Report ---
Date of Service September 13, 2023 Assessment & Plan (1) Arthritis of right hip: 67-year-old female status post a left hip replacement 3 years ago with advanced right hip DJD. She is got some knee arthritis as well but the right hip is by far the worst. She is failed conservative treatment like to have her right hip replaced. Plan: Orgran taken to the operating do right total hip placement. The risks Mente this procedure explained the patient clued but not limited to DVT PE infection neurological and vascular bleeding palm pain limb range of motion sepsis fairly her symptoms incomplete relief of symptoms need for further surgery in the future. The patient understands and desires to proceed. Inf ormed consent was obtained. As far as discharge plan she is planning to be discharged to home with home health. Her can assist in her care. Will plan on DVT prophylaxis including thigh-high teds, SCDs, aspirin twice a day. (2) Left knee DJD: (3) Status post total replacement of left hip: (4) Arthritis of left hip: (5) DJD (degenerative joint disease) of knee: History of Present Illness Chief Complaint: . Persistent and progressive right hip pain Primary Care Provider: Clinton Grimes MD . Patient is a 67-year-old female who now presents for surgical treatment right hip. 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 She did have her left hip replaced back in October 2020 and is done well with this. Over the past year she developed increased pain discomfort in her right hip. She describes groin pain and thigh pain. She limps all the time. The more she is up and onto the more painful it is in the more she limps. Pains become more debilitating. She had tempora response to an injection. She is ready to have her hip fixed. Allergies Allergy/AdvReac Type Severity Reaction Status Date / Time cefuroxime [From Ceftin] Allergy Severe Anaphylaxis/hives/Anabela Verified 08/03/23 10:28 syndrome sulfamethoxazole Allergy Severe Airway Verified 08/03/23 10:28 [From Bactrim] edema/rash trimethoprim [From Bactrim] Allergy Severe Airway Verified 08/03/23 10:28 edema/rash bacitracin Allergy Intermediate Itchy rash Verified 08/03/23 10:28 [From Neosporin ([id number])] ciprofloxacin [From Cipro] Allergy Intermediate Hives/itchy Verified 08/03/23 10:28 latex Allergy Intermediate skin Verified 08/03/23 10:28 irritation from "Band-aids" levofloxacin [From Levaquin] Allergy Intermediate Hives/itchy Verified 08/03/23 10:28 neomycin Allergy Intermediate Itchy rash Verified 08/03/23 10:28 [From Neosporin ([id number])] polymyxin B Allergy Intermediate Itchy rash Verified 08/03/23 10:28 [From Neosporin ([id number])] amoxicillin AdvReac Severe Vomiting Verified 08/03/23 10:28 clavulanic acid AdvReac Severe Vomiting Verified 08/03/23 10:28 [From Augmentin] lovastatin AdvReac Intermediate Cramping Verified 08/03/23 10:28 of the Muscles cheap metal Allergy Intermediate skin Uncoded 08/03/23 10:29 irritation Home Medications Medication Instructions Recorded Confirmed Type Wheeled Walker #1 ea 10/17/20 06/04/23 Rx celecoxib 200 mg capsule (Celebrex) 200 mg PO QAM 10/17/20 08/03/23 History ezetimibe 10 mg tablet (Zetia) 10 mg PO QAM 10/17/20 08/03/23 History hydroxychloroquine 200 mg tablet 400 mg PO QAM 10/17/20 08/03/23 History (Plaquenil) montelukast 10 mg tablet 10 mg PO HS 10/17/20 08/03/23 History valacyclovir 500 mg tablet 500 mg PO DIRECTED PRN Cold 10/17/20 08/03/23 History Sores calcium carbonate (Tums) 600 mg PO DAILY PRN Acid Reflux 10/23/20 08/03/23 History coenzyme Q10 100 mg capsule (Co 100 mg PO DIRECTED 10/23/20 08/03/23 History Q-10) resveratrol 250 mg capsule 250 mg PO QAM 10/26/20 08/03/23 History Sawyer Loaiza #1 ea 10/29/20 06/04/23 Rx Arthromax 1 tab PO QAM 06/15/23 08/03/23 History Cold Care-Herbal Liquid 1 - 2 tsp PO BID PRN NEEDED 06/15/23 08/03/23 History Ehr-Herbal Liquid 1 tbsp PO .1-3 X DAILY PRN . 06/15/23 08/03/23 History Gi Complete-Herbal Liquid 1 - 2 tsp PO .2-3 X DAILY PRN 06/15/23 08/03/23 History NEEDED Kortislo 1 tbsp PO DAILY 06/15/23 08/03/23 History Prebiotic/Probiotic For 50+ 1 tab PO QAM 06/15/23 08/03/23 History Vitamin K2 W/Vitamin K1 1 tab PO Q OTHER DAY 06/15/23 08/03/23 History acetaminophen 500 mg tablet 500 - 1,000 mg PO Q8H PRN 06/15/23 08/03/23 History (Tylenol Extra Strength) ARTHRITIS PAIN ascorbic acid (vitamin C) 1,000 mg 1 g PO DAILY 06/15/23 08/03/23 History tablet (Vitamin C) betamethasone dipropionate 0.05 % 1 applic topical BID PRN SKIN RASH 06/15/23 08/03/23 History topical cream calcium carbonate 600 mg-vitamin 1 cap PO BID 06/15/23 08/03/23 History D3 12.5 mcg (500 unit) capsule (Calcium 600 with Vitamin D3) clindamycin HCl 300 mg capsule 600 mg PO DIRECTED PRN 1 HR 06/15/23 08/03/23 History PRIOR TO DENTAL WORK. clotrimazole-betamethasone 1 1 applic topical DIRECTED PRN 06/15/23 08/03/23 History %-0.05 % topical cream GROIN & FINGERS NEEDED furosemide 20 mg tablet (Lasix) 20 mg PO QAM PRN Fluid Retention 06/15/23 History ketoconazole 2 % topical cream 1 applic topical DAILY PRN RIGHT 06/15/23 08/03/23 History MIDDLE FINGER, FUNGAL INFECTION magnesium oxide 500 mg PO DAILY 06/15/23 08/03/23 History nystatin 100,000 unit/gram topical 1 applic topical TID PRN Skin 06/15/23 08/03/23 History cream Irritation omega 2-egm-mfr-fish oil 900 1 cap PO QAM 06/15/23 08/03/23 History mg-1,400 mg capsule,delayed release triamcinolone acetonide 0.1 % 1 applic topical BID PRN RED, 06/15/23 08/03/23 History topical ointment RAISED & ITCHY SKIN RASH zoledronic acid 5 mg/100 mL in 1 ea IV YEARLY 06/15/23 08/03/23 History mannitol 5 %-water intravenous piggybck (Reclast) duloxetine 60 mg capsule,delayed 60 mg PO QPM 08/03/23 08/03/23 History release fluticasone furoate 200 1 inh inhalation DAILY 08/03/23 08/03/23 History mcg-vilanterol 25 mcg/dose inhalation powder (Breo Ellipta) multivitamin 1 tab PO QAM 08/03/23 08/03/23 History pseudoephedrine-DM 60 mg-30 mg 1 cap PO HS PRN Cough 08/03/23 08/03/23 History capsule Wheeled Walker #1 ea 09/08/23 Rx Past Med/Surg History Medical History Palpitations Occasional palpitations, s/p pvc monitor (2020)- triggered events correlated to sinus rhythm and sensed PACs COPD (chronic obstructive pulmonary disease) Per [facility] records Chronic cough Cervical spinal stenosis Degenerative disc disease Arthritis Anxiety and depression Restless leg syndrome DJD (degenerative joint disease) of knee Septic bursitis Left elbow (2016) > was aspirated and + MRSA Cervical spondylosis Mediastinal mass Anterior mediastinal mass (dx 2008) s/p CT scans to monitor Stable, most recent CTS 06/2023- enlarged lymph node in the anterior mediastium remains unchanged and likely benign compared to 03/2021 CTS per report Sjogren's syndrome + hydroxychloroquine Osteoarthritis GERD (gastroesophageal reflux disease) Hyperlipidemia Periodic limb movement disorder Asthma Surgical History History of total hip arthroplasty Left JOSÉ (11/13/20): SAB L3-4, 1 attempt at [facility] History of tonsillectomy and adenoidectomy History of colonoscopy History of cholecystectomy History of tooth extraction Family History Other No family history of adverse response to anesthesia Social History Smoking Status: Current every day smoker Tobacco Type: Cigarettes Cigarettes Per Day: 10 cig daily; Second Hand Exposure: Yes; Do You Dip or Chew Tobacco: No; Hx Alcohol Use: No Hx Substance Use: No Preferred Language: Prydeinig Communication Ability: Effective Tool Design Checker Required: No Beliefs That Will Affect Care: None marital status: Current Living Situation: Spouse Feels Safe at Home: Yes Safety Concerns: Feels Safe At This Time Assistive Devices: Cane, Glasses and Walker Review of Systems All systems reviewed & are unremarkable except as noted in HPI & below. Physical Exam . Physical examination is a pleasant middle-aged female. She looks to be in reasonably good health. Examination of the right hip and leg reveal patient walks with a bit of an antalgic gait. Including limps on the right side. She is about half centimeter shorter on the right compared to the left. She got very stiff hip with internal rotation to -5. This does recreate her pain. Negative straight leg raise. Examination of the left hip reveals a well-healed incision. She got painless hip motion. Constitutional WD/WN, vitals as above Neck trachea midline, no thyromegaly Respiratory normal respiratory effort, lungs clear to auscultation Cardiovascular RRR, no murmur, no edema Gastrointestinal (Abdomen) normal bowel sounds, soft, nontender, no hepatosplenomegaly Results & Data Results & Data Laboratory Results . Diagnostic Findings . X-rays of the right hip were reviewed. Shows advanced right hip arthritis. She got complete loss of joint space. Got cystic changes on both sides of the joint. The left hip replacement looks to be in good position without signs of problems. Looks to be well ingrown. PG Care Time/CCT Total # of Minutes Spent Total Time Spent with Patient: Total time spent is greater than 50% in coordination of care (as documented) at patient's floor/unit and/or counseling patient: Coding Level of Care Code None Diagnoses Arthritis of right hip M16.11 Left knee DJD M17.12 Status post total replacement of left hip Z96.642 Arthritis of left hip M16.12 DJD (degenerative joint disease) of knee M17.10
--- NOTE | 2024-03-09 12:21 | PAT Medication Instructions ---
Medication Instructions Date of Service March 09, 2024 Home Medications Medication Instructions Recorded Wheeled Walker #1 ea 10/17/20 Sawyer Hose #1 ea 10/29/20 Wheeled Walker #1 ea 09/08/23 celecoxib 200 mg capsule (Celebrex) 200 mg PO QAM ezetimibe 10 mg tablet (Zetia) 10 mg PO QAM hydroxychloroquine 200 mg tablet (Plaquenil) 400 mg PO QAM montelukast 10 mg tablet 10 mg PO HS valacyclovir 500 mg tablet 500 mg PO DIRECTED PRN calcium carbonate (Tums) 600 mg PO UD PRN coenzyme Q10 100 mg capsule (Co Q-10) 100 mg PO DIRECTED resveratrol 250 mg capsule 250 mg PO QAM Arthromax 2 tab PO QAM Cold Care-Herbal Liquid 1 - 2 tsp PO BID PRN Ehr-Herbal Liquid 1 tbsp PO .1-3 X DAILY PRN Gi Complete-Herbal Liquid 1 - 2 tsp PO .2-3 X DAILY PRN Kortislo 1 tbsp PO UD Prebiotic/Probiotic For 50+ 1 tab PO QAM Vitamin K2 W/Vitamin K1 1 tab PO Q OTHER DAY acetaminophen 500 mg tablet (Tylenol Extra Strength) 500 - 1,000 mg PO Q8H PRN ascorbic acid (vitamin C) 1,000 mg tablet (Vitamin C) 1 g PO DAILY betamethasone dipropionate 0.05 % topical cream 1 applic topical BID PRN SKIN calcium 600 mg (as carbonate)-vitamin D3 12.5 mcg (500 unit) capsule (Calcium with Vit D3) 1 cap PO BID clindamycin HCl 300 mg capsule 600 mg PO DIRECTED PRN clotrimazole-betamethasone 1 %-0.05 % topical cream 1 applic topical DIRECTED PRN furosemide 20 mg tablet (Lasix) 20 mg PO QAM PRN ketoconazole 2 % topical cream 1 applic topical DAILY PRN magnesium oxide 500 mg PO DAILY nystatin 100,000 unit/gram topical cream 1 applic topical TID PRN omega 7-zye-oyc-fish oil 900 mg-1,400 mg capsule,delayed release 1 cap PO QAM triamcinolone acetonide 0.1 % topical ointment 1 applic topical BID PRN zoledronic acid 5 mg/100 mL in mannitol 5 %-water intravenous piggybck (Reclast) 1 ea IV YEARLY duloxetine 60 mg capsule,delayed release 60 mg PO QPM fluticasone furoate 200 mcg-vilanterol 25 mcg/dose inhalation powder (Breo Ellipta) 1 inh inhalation DAILY multivitamin 1 tab PO QAM 08/03/23 [History Confirmed 03/01/24] pseudoephedrine-DM 60 mg-30 mg capsule 1 cap PO HS PRN albuterol sulfate 90 mcg/actuation aerosol inhaler 1 - 2 inh inhalation Q4H PRN azithromycin 500 mg tablet 500 mg PO 3XWK ethambutol 400 mg tablet 1,800 mg PO 3XWK fluticasone propionate 50 mcg/actuation nasal spray,suspension 2 spray intranasal UD PRN naltrexone 4.5 mg capsule 4.5 mg PO HS rifabutin 150 mg capsule 300 mg PO 3XWK Continue as directed valacyclovir 500 mg tablet 500 mg PO DIRECTED PRN(if needed) clindamycin HCl 300 mg capsule 600 mg PO DIRECTED PRN(if needed) fluticasone propionate 50 mcg/actuation nasal spray,suspension 2 spray intranasal UD PRN(if needed) fluticasone furoate 200 mcg-vilanterol 25 mcg/dose inhalation powder (Breo El lipta) 1 inh inhalation DAILY azithromycin 500 mg tablet 500 mg PO 3XWK rifabutin 150 mg capsule 300 mg PO 3XWK ethambutol 400 mg tablet 1,800 mg PO 3XWK ASK your surgeon for instructions celecoxib 200 mg capsule (Celebrex) 200 mg PO QAM ASK your prescriber and surgeon hydroxychloroquine 200 mg tablet (Plaquenil) 400 mg PO QAM zoledronic acid 5 mg/100 mL in mannitol 5 %-water intravenous piggybck (Reclast) 1 ea IV YEARLY STOP taking 2 weeks before surgery (or as soon as possible if surgery is within 2 weeks) coenzyme Q10 100 mg capsule (Co Q-10) 100 mg PO DIRECTED resveratrol 250 mg capsule 250 mg PO QAM Arthromax 2 tab PO QAM Cold Care-Herbal Liquid 1 - 2 tsp PO BID PRN Ehr-Herbal Liquid 1 tbsp PO .1-3 X DAILY PRN Gi Complete-Herbal Liquid 1 - 2 tsp PO .2-3 X DAILY PRN Kortislo 1 tbsp PO UD Vitamin K2 W/Vitamin K1 1 tab PO Q OTHER DAY omega 4-trb-zdi-fish oil 900 mg-1,400 mg capsule,delayed release 1 cap PO QAM STOP taking 24 hours before surgery betamethasone dipropionate 0.05 % topical cream 1 applic topical BID PRN SKIN clotrimazole-betamethasone 1 %-0.05 % topical cream 1 applic topical DIRECTED PRN ketoconazole 2 % topical cream 1 applic topical DAILY PRN nystatin 100,000 unit/gram topical cream 1 applic topical TID PRN triamcinolone acetonide 0.1 % topical ointment 1 applic topical BID PRN DO NOT take the morning of surgery calcium carbonate (Tums) 600 mg PO UD PRN Prebiotic/Probiotic For 50+ 1 tab PO QAM ascorbic acid (vitamin C) 1,000 mg tablet (Vitamin C) 1 g PO DAILY calcium 600 mg (as carbonate)-vitamin D3 12.5 mcg (500 unit) capsule (Calcium with Vit D3) 1 cap PO BID furosemide 20 mg tablet (Lasix) 20 mg PO QAM PRN magnesium oxide 500 mg PO DAILY Take morning of surgery With a small sip of water, OTHERWISE NOTHING TO EAT OR DRINK AFTER MIDNIGHT: ezetimibe 10 mg tablet (Zetia) 10 mg PO QAM acetaminophen 500 mg tablet (Tylenol Extra Strength) 500 - 1,000 mg PO Q8H PRN (if needed) albuterol sulfate 90 mcg/actuation aerosol inhaler 1 - 2 inh inhalation Q4H PRN (use if needed; please bring with you to hospital day of surgery if possible) Take evening before surgery montelukast 10 mg tablet 10 mg PO HS acetaminophen 500 mg tablet (Tylenol Extra Strength) 500 - 1,000 mg PO Q8H PRN (if needed) calcium 600 mg (as carbonate)-vitamin D3 12.5 mcg (500 unit) capsule (Calcium with Vit D3) 1 cap PO BID duloxetine 60 mg capsule,delayed release 60 mg PO QPM pseudoephedrine-DM 60 mg-30 mg capsule 1 cap PO HS PRN(if needed) albuterol sulfate 90 mcg/actuation aerosol inhaler 1 - 2 inh inhalation Q4H PRN (if needed) naltrexone 4.5 mg capsule 4.5 mg PO HS Other Notes If you have any questions please call us at [phone] or [phone] or [phone] or [phone]
--- NOTE | 2024-03-10 13:48 | Anesthesiology Consultation ---
Date of Service March 10, 2024 Assessment & Plan (1) Encounter for pre-operative examination: Plan - awaiting surgeon's documentation in response to below [facility] pulmonology notation. - pulmonology office visit 01/26/24 [facility]: "...Still having cough without acute change...will need PFT and will perform after controlling her cough and will reassess during her next follow-up visit...Needs aggressive airway clearance with incentive spirometry, flutter valve and she will use those as much as she can. 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 I had talked to her orthopedic surgeon Dr. Ferguson ([facility]) during her last follow-up visit and as per him , this operation is elective so, it would be better do after clearing the Mycobacterium infection. But she needs to continue her antibiotic during perioperative..." From 08/06/23 PAT visit: - Outpatient joint assessment: Pt currently scheduled for inpatient pathway. If surgeon requests review for outpatient joint pathway, patient is not recommended candidate for outpatient joint program from anesthesia standpoint based upon available information. - S/P Left JOSÉ (11/13/20): SAB L3-4, [address] [facility] - Patient concern: Patient reports osteoporosis and multiple joint/lumbar pain r/t hx of left knee popliteal ruptured cyst, DDD, cervical stenosis. Requests caution with positioning/transfer. Chart Review Chart Review: Pending: Refer to Additional Notes / Consult section and Patient seen in Pre Admission Testing Teaching & Discussion Pre-Anesthesia Teaching/Discussion Notes: Instructed NPO after midnight before surgery, except medications with 15 cc of water. Medication instructions provided according to the PAT guidelines. History Surgery Operation Date: 10/15/23 08:50 Proposed Procedures p Right Total Hip Arthroplasty - Donte Ferguson MD Operation Date: 03/21/24 10:40 Proposed Procedures p Right Total Hip Arthroplasty - Donte Ferguson MD Height/Weight Height: 5 ft 3 in Weight: 79.3 kg Allergies Allergy/AdvReac Type Severity Reaction Status Date / Time cefuroxime [From Ceftin] Allergy Severe Anaphylaxis/hives/Anabela Verified 03/01/24 09:56 syndrome sulfamethoxazole Allergy Severe Airway Verified 03/01/24 09:56 [From Bactrim] edema/rash trimethoprim [From Bactrim] Allergy Severe Airway Verified 03/01/24 09:56 edema/rash bacitracin Allergy Unknown Itchy rash Verified 03/01/24 09:56 [From Neosporin ([id number])] ciprofloxacin [From Cipro] Allergy Unknown Hives/itchy Verified 03/01/24 09:56 latex Allergy Unknown skin Verified 03/01/24 09:56 redness from "Band-aids" levofloxacin [From Levaquin] Allergy Unknown Hives/itchy Verified 03/01/24 09:56 neomycin Allergy Unknown Itchy rash Verified 03/01/24 09:56 [From Neosporin ([id number])] polymyxin B Allergy Unknown Itchy rash Verified 03/01/24 09:56 [From Neosporin ([id number])] amoxicillin AdvReac Unknown Vomiting Verified 03/01/24 09:56 clavulanic acid AdvReac Unknown Vomiting Verified 03/01/24 09:56 [From Augmentin] lovastatin AdvReac Unknown Cramping Verified 03/01/24 09:56 of the Muscles cheap metal Allergy Unknown skin Uncoded 03/01/24 09:56 irritation/skin discoloration. Medications Home Medications Medication Instructions Recorded Confirmed Last Taken Wheeled Walker #1 ea 10/17/20 03/01/24 Unknown celecoxib 200 mg capsule (Celebrex) 200 mg PO QAM 10/17/20 03/01/24 06/15/23 ezetimibe 10 mg tablet (Zetia) 10 mg PO QAM 10/17/20 03/01/24 06/15/23 hydroxychloroquine 200 mg tablet 400 mg PO QAM 10/17/20 03/01/24 06/15/23 (Plaquenil) montelukast 10 mg tablet 10 mg PO HS 10/17/20 03/01/24 06/14/23 valacyclovir 500 mg tablet 500 mg PO DIRECTED PRN Cold 10/17/20 03/01/24 Unknown Sores calcium carbonate (Tums) 600 mg PO UD PRN Acid Reflux 10/23/20 03/01/24 11/10/20 02:00 coenzyme Q10 100 mg capsule (Co 100 mg PO DIRECTED 06/06/1403/01/24 11/02/20 10:00 Q-10) resveratrol 250 mg capsule 250 mg PO QAM 10/26/20 03/01/24 06/15/23 Sawyer Loaiza #1 ea 10/29/20 03/01/24 Unknown Arthromax 2 tab PO QAM 06/15/23 03/01/24 06/15/23 Cold Care-Herbal Liquid 1 - 2 tsp PO BID PRN NEEDED 06/15/23 03/01/24 Unknown Ehr-Herbal Liquid 1 tbsp PO .1-3 X DAILY PRN . 06/15/23 03/01/24 06/15/23 Gi Complete-Herbal Liquid 1 - 2 tsp PO .2-3 X DAILY PRN 06/15/23 03/01/24 Unknown NEEDED Kortislo 1 tbsp PO UD 06/15/23 03/01/24 06/15/23 Prebiotic/Probiotic For 50+ 1 tab PO QAM 06/15/23 03/01/24 06/15/23 Vitamin K2 W/Vitamin K1 1 tab PO Q OTHER DAY 06/15/23 03/01/24 06/14/23 acetaminophen 500 mg tablet 500 - 1,000 mg PO Q8H PRN 06/15/23 03/01/24 Unknown (Tylenol Extra Strength) ARTHRITIS PAIN ascorbic acid (vitamin C) 1,000 mg 1 g PO DAILY 06/15/23 03/01/24 06/15/23 tablet (Vitamin C) betamethasone dipropionate 0.05 % 1 applic topical BID PRN SKIN RASH 06/15/23 03/01/24 Unknown topical cream calcium 600 mg (as 1 cap PO BID 06/15/23 03/01/24 06/15/23 08:00 carbonate)-vitamin D3 12.5 mcg (500 unit) capsule (Calcium with Vit D3) clindamycin HCl 300 mg capsule 600 mg PO DIRECTED PRN 1 HR 06/15/23 03/01/24 Unknown PRIOR TO DENTAL WORK. clotrimazole-betamethasone 1 1 applic topical DIRECTED PRN 06/15/23 03/01/24 Unknown %-0.05 % topical cream GROIN & FINGERS NEEDED furosemide 20 mg tablet (Lasix) 20 mg PO QAM PRN Fluid Retention 06/15/23 03/01/24 06/13/23 ketoconazole 2 % topical cream 1 applic topical DAILY PRN RIGHT 06/15/23 03/01/24 Unknown MIDDLE FINGER, FUNGAL INFECTION magnesium oxide 500 mg PO DAILY 06/15/23 03/01/24 06/15/23 nystatin 100,000 unit/gram topical 1 applic topical TID PRN Skin 06/15/23 03/01/24 Unknown cream Irritation omega 9-xwy-mfa-fish oil 900 1 cap PO QAM 06/15/23 03/01/24 06/15/23 mg-1,400 mg capsule,delayed release triamcinolone acetonide 0.1 % 1 applic topical BID PRN RED, 06/15/23 03/01/24 Unknown topical ointment RAISED & ITCHY SKIN RASH zoledronic acid 5 mg/100 mL in 1 ea IV YEARLY 06/15/23 03/01/24 03/19/23 mannitol 5 %-water intravenous piggybck (Reclast) duloxetine 60 mg capsule,delayed 60 mg PO QPM 08/03/23 03/01/24 Unknown release fluticasone furoate 200 1 inh inhalation DAILY 08/03/23 03/01/24 Unknown mcg-vilanterol 25 mcg/dose inhalation powder (Breo Ellipta) multivitamin 1 tab PO QAM 08/03/23 03/01/24 Unknown pseudoephedrine-DM 60 mg-30 mg 1 cap PO HS PRN Cough 08/03/23 03/01/24 Unknown capsule Wheeled Walker #1 ea 09/08/23 03/01/24 Unknown albuterol sulfate 90 mcg/actuation 1 - 2 inh inhalation Q4H PRN 03/01/24 03/01/24 Unknown aerosol inhaler Dyspnea azithromycin 500 mg tablet 500 mg PO 3XWK 03/01/24 03/01/24 Unknown ethambutol 400 mg tablet 1,800 mg PO 3XWK 03/01/24 03/01/24 Unknown fluticasone propionate 50 2 spray intranasal UD PRN 03/01/24 03/01/24 Unknown mcg/actuation nasal Congestion spray,suspension naltrexone 4.5 mg capsule 4.5 mg PO HS 03/01/24 03/01/24 Unknown rifabutin 150 mg capsule 300 mg PO 3XWK 03/01/24 03/01/24 Unknown Past Medical History Medical History (Updated 03/10/24 @ 14:12 by Cecily Vu PA-C) Anxiety and depression Arthritis Asthma Cervical spinal stenosis Cervical spondylosis Chronic cough COPD (chronic obstructive pulmonary disease) Per [facility] records; last rescue inhaler use several months ago Degenerative disc disease GERD (gastroesophageal reflux disease) nightly use of TUMS while on current antibiotics for pulm infection History of anesthesia reaction in her room while on the floor ; strips on ceiling tiles looked like they were moving ; lasted for hours. Pt reports it wasn't unpleasant. History of bursitis septic 2017, left elbow, aspirated and + MRSA. 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 Most recent sputum cultures were negative as of November 2023. Follows Dr. Patricio Aaron. Hyperlipidemia Left leg swelling on occ. Hx echo 01/2024 and no findings. Mediastinal mass Anterior mediastinal mass (dx 2008) s/p CT scans to monitor Stable, hx CTS 06/2023- enlarged lymph node in the anterior mediastium remains unchanged and likely benign compared to 03/2021 CTS per report Jan [address] scan: no changes per pt. Osteoarthritis Osteoporosis Palpitations Occasional palpitations, s/p secured entrance monitor (2020)- triggered events correlated to sinus rhythm and sensed PACs Periodic limb movement disorder Restless leg syndrome Sjogren's syndrome + hydroxychloroquine Unique anesthetic considerations on preoperative anesthesia assessment pt request to use extra caution when moving her due to her osteoprosis. Patient denies h/o stroke, seizures, heart attack, heart failure, DM, HTN, blood clots/DVTs or blood transfusions. Exercise / Class Metabolic Activity III < 4 Walking/Shop/Light housework (denies chest discomfort or shortness of breath with usual activities ) Past Family History Family History Other No family history of adverse response to anesthesia Past Surgical History Surgical History History of cholecystectomy History of colonoscopy History of tonsillectomy and adenoidectomy History of tooth extraction History of total hip arthroplasty Left JOSÉ (11/13/20): SAB L3-4, [address] [facility] Past Anesthesia History No Family Hx of Anesthesia Complications and Other (see above) History of PONV No Hx of PONV and No Hx of Motion Sickness Social History Smoking Status: Current every day smoker tobacco type: cigarettes Smoking cigarettes per day: 10 cigs per day/advised npo Do You Dip or Chew Tobacco: No Hx Alcohol Use: Yes (hx many yrs ago moderate use/none for 35 + yrs) substance use type: does not use Review of Systems Patient denies chest pain, shortness of breath, dyspnea on exertion, snoring, witnessed apneas, fever, chills, cough, wheezing, or palpitations. Physical Exam Vital Signs Vitals BP 103/69 P 78 TEMP 98.2 SP02 96% on RA RESP 18 Physical Patient resting comfortably in chair in no acute distress, alert and oriented, responding appropriately throughout visit Full cervical extension range of motion without pain TMD 3.5 finger breadths Mallampati Score 2 Dentition: intact, denies chipped or loose teeth, caps/crowns, implants or bridges Lungs: normal respiratory effort. Good air movement, clear throughout to auscultation, no adventitious breath sounds Cardiac: regular rate and rhythm, no murmurs noted Carotid arteries: negative bruit bilat Lab Results Anesthesia Preop Results Results Anesthesia Widget: WBC 10.30 K/ul (4.8-10.8) 03/10/24 Hgb 14.0 g/dl (12.0-16.0) 03/10/24 Hct 41.4 % (37.0-47.0) 03/10/24 Plt 239 K/uL (130-400) 03/10/24 PT 10.3 Seconds (9.0-12.0) 03/10/24 PTT 31 Seconds (21-31) 03/10/24 INR 0.9 (0.9-1.1) 03/10/24 Blood Type B Positive 03/10/24 Antibody Screen NEGATIVE 03/10/24 Testing Laboratory Results 01/26/24 WBC: 10.3 H/H: PLATELETS: 246,000 SODIUM: 143 POTASSIUM: 4.3 CHLORIDE: 111 CO2: 21 BUN: 20 CREATININE: 0.8 GLUCOSE: 102 Electrocardiogram Date: 08/06/23 NSR at 84bpm. NS STA. No significant change compared to 10/26/2020 per news librarian comparison. Echocardiogram Date: 01/28/24 EF 65-69% Normal LV wall motion Grade I diastolic dysfunction No significant valvular pathology Other Testing Chest CT 01/05/24 Redemonstration of findings suggesting infectious/inflammatory bronchiolitis Right upper lobe nodular area is stable from 07/17/23 CT, but more conspicuous from 2020 CT. This may represent an area of atelectasis/scarring.
[~2024-03-21 05:02] MED LIST: ALLERGY Noted to ORDERED Medication SCH
[2024-03-21] MEDS: ACETAMINOPHEN 500 MG TAB PO SCH (05:57)
[2024-03-21] MEDS: LR 60ML/HR IV SCH (05:58)
[2024-03-21] MEDS: FAMOTIDINE 20 MG TAB PO SCH (05:58)
[2024-03-21] MEDS: dexAMETHasone**PF** 10 MG/ML VIAL IV SCH (05:58)
[2024-03-21] MEDS: METOCLOPRAMIDE HCL 10 MG TABLET PO SCH (05:58)
[2024-03-21] MEDS: CeleBREX 200 MG CAP PO SCH (05:58)
[2024-03-21] MEDS: LR 500ML BOLUS, THEN 15ML/HR IV SCH (05:58)
[2024-03-21] MEDS ORDERED: BUPIVACAINE 0.5 % 5 MG/1 ML PF 10ML VIAL ONE (06:15)
[2024-03-21] MEDS ORDERED: MIDAZOLAM HCL 1 MG/ML 2ML VIAL ONE (06:25)
[2024-03-21] MEDS ORDERED: fentaNYL citrate PF 100 MCG/2 ML VIAL ONE (06:25)
[2024-03-21] MEDS ORDERED: PROPOFOL IV EMULSION 10 MG/ML 100 ML VIAL IV ONE (06:26)
--- NOTE | 2024-03-21 06:38 | History & Physical Bridge Note ---
Date of Service March 21, 2024 History & Physical Bridge Note I have examined the patient, reviewed the History & Physical and in the interval since the performance of the History & Physical I have noted the following changes of clinical significance: no changes noted
[2024-03-21] MEDS ORDERED: ONDANSETRON INJ 2 MG/ML 2 ML VIAL IV PRN (06:43)
[2024-03-21] MEDS ORDERED: ATROPINE SULFATE 0.1 MG/ML 10ML SYR IV PRN (06:43)
[2024-03-21] MEDS ORDERED: ePHEDrine sulfate 50 MG/ML AMP IV PRN (06:43)
[2024-03-21] MEDS ORDERED: fentaNYL citrate PF 100 MCG/2 ML VIAL IV PRN (06:43)
[2024-03-21] MEDS: TRANEXAMIC ACID 1,000 MG **IV Pre-op IV SCH (06:45)
[2024-03-21] MEDS: ceFAZolin 2000MG 2,000 MG/15 ML SYR IV SCH (07:24)
[2024-03-21] MEDS ORDERED: ceFAZolin 330 MG/ML 1 GM VIAL ONE (07:44)
[2024-03-21] MEDS: BUPIVACAINE/EPINEPHRINE 0.5% MPF 1:200,000 30 ML VIAL ONE (07:45)
--- NOTE | 2024-03-21 08:41 | Operative Report ---
PG Post Operative Report Pre & Post Diagnosis Operation Date: 03/21/24 07:00 Pre-Op Diagnosis: Right Hip Degenerative Joint Disease Post-Op Diagnosis: Right Hip Degenerative Joint Disease I identified the patient and participated in the time-out.: Yes Procedure Operation Date: 03/21/24 07:00 Actual Procedures p Right Total Hip Arthroplasty, Uncemented(Right) - Donte Ferguson MD Surgeon Donte Ferguson MD Physician Office Assistant Arsen Collins PA-C Estimated Blood Loss 100 Findings Consistent with Post-Op Diagnosis Operative findings were advanced right hip DJD. She had extensive grade 4 [id number]-tf-[id number] disease of the femoral head and acetabulum. Moderate-sized joint effusion. Specimens Right femoral head sent for pathology. Anesthesia Type Spinal MAC Complications none Disposition Accompanied Patient To Recovery: No Indications Patient is a 68-year-old female whose had a history of hip problems had her left hip replaced several years ago. Over the past year she developed increased pain discomfort in her right hip. She failed conservative measures. X-rays showed marked progression of her hip arthritis. She was actually scheduled for surgery in the past but got canceled due to Mycobacterium infection which had to go of complete treatment. She has not completed treatment of this and been cleared and indicated to proceed with total hip arthroplasty. Description of Procedure Operative implants consist of: 1. Biomet G7 size 50 mm acetabular shell. 2. 6.5 cancellous acetabular screws 1 of 35 mm length 125 mm length. 3. [place] hole recreation facility attendant. 4. Highly cross-linked polyethylene liner with a 50 mm outer diameter, 36 mm inner diameter with a mukherjee placed inferior and posterior. 5. DePuy Corail I size 9 short neck, 125 degree angle femoral stem. 6. +5/36 mm ceramic articular ball. The patient was taken the op room, identified, placed on the operative table in the supine position. All conductors were appropriately padded. IV antibiotics fibra anesthesia team. A spinal anesthetic had been implemented holding area. Max catheter was placed in sterile fashion. The patient then placed on the left lateral decubitus position. An axillary roll was placed. A stool Birkett position was used for positioning. The right hip and leg were then prepped and draped in usual sterile fashion. A posterior lateral approach to the right hip was then performed through a curvilinear incision centered over the greater trochanter. Sharp dissection was got through subcutaneous tissue down to level of the IT band gluteal fascia. The IT band gluteal fascia was sized longitudinally in line with skin incision. The underlying greater trochanter bursa was excised. The piriformis and external rotators along with the posterior hip joint capsule were then released in the posterior aspect the hip as a single layer. Great care was taken throughout the procedure protect the sciatic nerve at all times. The hip was internally rotated and dislocated. A femoral neck osteotomy cut was made with Final Cut 10 mm above the lesser trochanter. Femoral head was removed and sent for pathology. The femur was retracted anteriorly. Attention drawn the main tabulum. The acetabular labrum was excised. The pulmonary fat was excised. Sequential reaming the acetabular was then performed beginning with size 43 and progressing up to 49. We reamed a little bit with a 50 reamer and then placed a 50 mm Biomet G7 acetabular shell in about 40 degrees lateral opening and 20 degrees of anteversion. It was fixed with two 6.5 screws. A trial liner was placed. Attention drawn the femur. The proximal femur then with a cookie cutter followed by canal finder. I then broached beginning size 8 and progressed up to 9. Did not think we get anything bigger than the 9 end especially considering she had an 8 on the other side. The calcar reamer was used smoothed off the calcar. We trialed the hip and the +5 articular ball provided full stability, appropriate soft tissue tension equal leg lengths. The hip was stable. I did elect to place a mukherjee inferior and posterior to maximize her stability in flexion. All trial implants were removed. An apex hole recreation facility attendant was placed. Highly cross-linked polyethylene liner with mukherjee placed inferior and posterior was then placed into position. A size 925 degree angle short neck KLA femoral stem was impacted in position. A +5/36 mm articular ball was placed. Hip was located and once again found to be stable. Attention drawn toward closing. The wound was irrigated cosigns of pulsatile lavage solution. We did inject locally with 60 cc of half percent Marcaine with epinephrine. Patient did receive 1 g tranexamic acid. The posterior capsule and external rotators were then repaired through drill holes in the posterior trochanter with #2 Tycron suture. The IT band gluteal fascia was then closed with #1 PDS suture running fashion. Subcutaneous tissue was then closed with 2 layers of the deep layer #2 Vicryl suture in the subcutaneous tissues with 2-0 Dexon suture in a buried interrupted fashion. The skin was closed with skin joanna. A Prevena VAC dressing was then applied. The patient was then transferred to the recovery room in stable condition. The patient tolerated the procedure well and there were no complications. Arsen Collins, my physician advertising assistant, was present for the entire procedure. His assistance was essential and required for appropriate patient positioning, prepping and draping, surgical exposure, performing the technical details of the operation, placement the implants, closure of the wound, and placement of the sterile bandage. I attest to the content of the Intraoperative Record and any orders documented therein. Any exceptions are noted below.
--- NOTE | 2024-03-21 08:55 | XRay Report ---
XR hip 1V RT w pelvis HISTORY: 68 years-old Female IN PACU - Post Surgical COMPARISON: 03/10/2024 TECHNIQUE: AP view of the pelvis with crosstable lateral view of the right FINDINGS: Bilateral hip arthroplasties. Lateral right hip skin joanna with expected postoperative soft tissue swelling and deep tissue air. No acute fracture or malalignment. A Max catheter is present. IMPRESSION: Unremarkable appearance of the right hip arthroplasty with expected postoperative changes . ACT 112: Negative or not required by law. The above report was generated using voice recognition software. It may contain grammatical, syntax o r spelling errors. Electronically signed by: Joshua Espinoza M.D. 03/21/2024 8:54 AM
--- NOTE | 2024-03-21 09:07 | Anesthesiology Progress Note ---
Date of Service March 21, 2024 Anesthesia Post Procedure Vital Signs Vital Signs: Temp Pulse Pulse Resp BP Pulse Ox O2 Del Method 03/21/24 08:55 78 18 119/66 97 Room Air 03/21/24 08:45 79 16 117/63 97 Room Air 03/21/24 08:35 80 12 115/58 L 97 Room Air 03/21/24 08:25 36.1 C L 94 H 20 102/53 L 95 Room Air 03/21/24 05:36 36.5 C 77 18 126/57 L 96 Room Air Transfer of Care Handoff Completed per policy Notes Mental Status: alert / awake / arousable Patient Amnestic to Procedure: Yes Nausea / Vomiting: adequately controlled Pain: adequately controlled Airway Patency, RR, SpO2: stable & adequate BP & HR: stable & adequate Hydration State: stable & adequate Neuraxial Anesthesia: was administered and sensory block is resolving Anesthetic Complications: no major complications apparent and Pt Satisfied with anesthetic care
[2024-03-21] MEDS ORDERED: NON-FORMULARY MEDICATION (Coenzyme Q10 [Co Q-10] 100 mg Capsule) PO SCH (09:28)
[2024-03-21] MEDS ORDERED: ALBUTEROL HFA 8 GM INHALER INH PRN (09:28)
[2024-03-21] MEDS ORDERED: SENNA 8.6 MG TAB PO SCH (09:28)
[2024-03-21] MEDS ORDERED: [UNRECOGNIZED DRUG - OTHER] PO SCH (09:28)
[2024-03-21] MEDS ORDERED: VITAMIN K2 PO SCH (09:28)
[2024-03-21] MEDS ORDERED: METOCLOPRAMIDE HCL INJ 5 MG/ML 2 ML VIAL IV PRN (09:28)
[2024-03-21] MEDS ORDERED: [UNRECOGNIZED DRUG - OTHER] PO SCH (09:28)
[2024-03-21] MEDS ORDERED: ZOLEDRONIC ACID 5 MG/100 ML VIAL IV SCH (09:28)
[2024-03-21] MEDS ORDERED: FUROSEMIDE 20 MG TAB PO PRN (09:28)
[2024-03-21] MEDS ORDERED: bisacodyL 10 MG SUPP PR PRN (09:28)
[2024-03-21] MEDS ORDERED: [UNRECOGNIZED DRUG - OTHER] PO SCH (09:28)
[2024-03-21] MEDS ORDERED: TRIAMCINOLONE ACET 0.1% OINT 15 GM TUBE TOP PRN (09:28)
[2024-03-21] MEDS ORDERED: NYSTATIN CR 15 GM TUBE EXT PRN (09:28)
[2024-03-21] MEDS ORDERED: [UNRECOGNIZED DRUG - OTHER] PO PRN (09:28)
[2024-03-21] MEDS ORDERED: NON-FORMULARY MEDICATION (Multivitamin Tablet) PO SCH (09:28)
[2024-03-21] MEDS ORDERED: MAGNESIUM HYDROXIDE SUSP 30 ML UDC PO PRN (09:28)
[2024-03-21] MEDS ORDERED: HYDROmorphone INJ 0.5 MG/0.5 ML SYR IV PRN (09:28)
[2024-03-21] MEDS ORDERED: NALOXONE HCL 0.4 MG/1 ML VIAL/CARP IV PRN (09:28)
[2024-03-21] MEDS ORDERED: ALUMINUM/MAGNESIUM SUSP 30 ML UDC PO PRN (09:28)
[2024-03-21] MEDS ORDERED: RESVERATROL 250 MG PO SCH (09:28)
[2024-03-21] MEDS ORDERED: CALCIUM CARBONATE 500 MG CHEWABLE TAB PO PRN (09:56)
[2024-03-21] MEDS ORDERED: DEXTROMETHORPHAN POLYMR COMPLX 30 MG/5 ML UDP PO PRN (10:06)
[2024-03-21] MEDS ORDERED: PSEUDOEPHEDRINE HCL 30 MG TAB PO PRN (10:07)
[2024-03-21] MEDS ORDERED: BETAMETHASONE DIP AUG (DIPROLENE) 0.05% CR 15 GM TUBE EXT PRN (10:22)
[2024-03-21] MEDS: KETOROLAC TROMETHAMINE 15 MG/ML VIAL IV SCH (10:25)
[2024-03-21] MEDS: CALCIUM 600MG + VIT D 400 IU TAB PO SCH (10:30)
[2024-03-21] MEDS: ASPIRIN 81 MG ECTAB PO SCH (10:31)
[2024-03-21] MEDS: ASCORBIC ACID 500 MG TAB PO SCH (10:31)
[2024-03-21] MEDS: EZETIMIBE 10 MG TAB PO SCH (10:32)
[2024-03-21] MEDS: FLUTICASONE PROPIONATE NA SPR 16 GM BTL NAE PRN (10:36)
[2024-03-21] MEDS: NICOTINE 14 MG/24 HR PATCH TD SCH (10:51)
[2024-03-21] MEDS: FLUTICASONE/VILANTEROL 200/25MCG 14 PUFFS/INHALER INH SCH (11:04)
[2024-03-21] MEDS: MULTIVITAMIN TAB PO SCH (11:05)
[2024-03-21] MEDS: OMEGA-3 (PURIFIED FISH OIL) 1 GM CAP PO SCH (11:05)
[2024-03-21] MEDS: HYDROXYCHLOROQUINE SULFATE 200 MG TAB PO SCH (11:06)
[2024-03-21] MEDS: DOCUSATE SODIUM 100 MG CAP PO SCH (11:07)
[2024-03-21] MEDS: ADVANCED PROBIOTIC 625 MG CAPSULE PO SCH (12:09)
[2024-03-21] MEDS: ceFAZolin 1000MG 1,000 MG/7.5 ML SYR IV SCH (15:04)
[2024-03-21] MEDS: TRANEXAMIC ACID / 0.7% NACL 1,000 MG/100 ML BAG IV SCH (15:10)
[2024-03-21] MEDS: traMADol HCL 50 MG TABLET PO PRN (16:40)
[2024-03-21] MEDS: ONDANSETRON INJ 2 MG/ML 2 ML VIAL IV PRN (16:40)
[2024-03-21] MEDS: NALTREXONE 4.5 MG SCH (16:45)
[2024-03-21] MEDS ORDERED: ASCORBIC ACID 500 MG TAB PO SCH (17:00)
[2024-03-21 19:54] VITALS: RESP 18
[2024-03-21] MEDS: SENNA 8.6 MG TAB PO SCH (20:23)
[2024-03-21] MEDS: DULoxetine HCL 60 MG CAP PO SCH (20:25)
[2024-03-21] MEDS: MONTELUKAST SODIUM 10 MG TABLET PO SCH (20:26)
[2024-03-22 03:21] VITALS: TEMP 97.9
--- OUTSIDE RECORDS SUMMARY | 2024-03-22 03:25 | External Medical Summary | Summary of Care ---
Author Name Unknown Organization [facility] Address [address] [place] [address] Phone [phone] Care Team Providers Care Emergency Management System Director Name Role Phone Clinton Grimes MD Primary Care Provider [phone] Encounter Details Date Type Department Care Team (Late st Contact Info) Description 03/21/2024 Orders Only Outcomes Research Department [address] [place] [address] Yaa Rhodes CHRA MyCode Research Other*[id number] Allergies Active Allergy Reactions Criticality Noted Date Comments Alendronate 02/17/2023 Amoxicillin Nausea/vomiting Medium 03/24/2018 Severe vomiting. Amoxicillin-Pot Clavulanate Nausea/vomiting Medium 03/24/2018 Severe vomiting Cefuroxime Axetil Anaphylaxis High 09/28/2008 Rosuvastatin Calcium Muscle pain Low 11/14/2010 Stopped August 15, 2010 Latex Rash 05/14/2023 Levofloxacin Hives,Itching High 09/28/2008 Started to have trouble breathing Atorvastatin Calcium Muscle pain Low 10/19/2009 Thigh pain and weakness Lovastatin Muscle pain Medium 06/23/2011 Neomycin-Bacitracin Zn-Polymyx Itching 01/21/2012 Sulfa Antibiotics Rash Low 12/30/2010 Simvastatin Muscle pain Low 10/19/2009 Leg pain documented as of this encounter (statuses as of 03/21/2024) Medications Medication Sig Dispensed Refills Start Date End Date Status MULTIVITAMINS PO TABS Take 1 Tablet by mouth. Active OMEGA 3 1000 MG PO CAPS once daily Active RESVERATROL 250 MG PO CAPS 100 mg daily Active Vitamin C 500 MG Oral Tablet (ASCORBIC ACID) Take 2 Tablets by mouth in the morning. Active Glucosamine-Chondro itin 500-400 MG Oral Capsule Take 1 Capsule by mouth in the morning and 1 Capsule at noon and 1 Capsule before bedtime. Active Magnesium Oxide 500 MG Oral Tablet Take by mouth . Activ e Furosemide 20 MG Oral Tablet (Lasix) Take 1 Tablet (20 mg) by mouth in the morning. 30 Tablet 11 04/02/2022 Active Additional Information Patient taking differently:20 mg OralDAILY PRN, Reported on 01/05/2024 Betamethasone Dipropionate Aug 0.05 % External Cream (Diprolene AF)Indications:Rash and nonspecific skin eruption Apply topically to affected area 2 times a day. To affected area. 50 g 3 06/24/2022 Active Coenzyme Q10 100 MG Oral Tablet Take 1 Tablet by mouth in the morning. Active Calcium Citrate-Vitamin D3 315-6.25 MG-MCG Oral Tablet (Calcium Citrate + D3 Maximum) Take by mouth. Active Vitamin K2 100 MCG Oral TabletIndications:p t takes every other day Take 100 mcg by mouth. Pt takes a super K with 1500 mcg K1 Active Probiotic & Acidophilus Ex St Oral Capsule Take 1 Capsule by mouth in the morning and 1 Capsule at noon and 1 Capsule in the evening. Take with meals. Active Hydroxychloroquine Sulfate 200 MG Oral Tablet (Plaquenil)Indicati ons:Rheumatoid arthritis of multiple sites with negative rheumatoid factor (HCC) Take 2 Tablets by mouth in the morning. 180 Tablet 4 05/14/2023 Active Celecoxib 200 MG Oral Capsule (CeleBREX) TAKE 1 CAPSULE BY MOUTH IN THE MORNING FOR PAIN 90 Capsule 4 05/14/2023 Active ProAir HFA 108 (90 Base) MCG/ACT Inhalation Aerosol Solution Inhale 2 Puffs by mouth every 4 hours as needed for Dyspnea. 18 g 3 08/25/2023 Active Azithromycin 500 MG Oral Tablet (Zithromax) Take 1 Tablet by mouth once a day on Thursday, Thursday and Thursday only at 9:00pm. 15 Tablet 6 09/30/2023 Active Rifabutin 150 MG Oral Capsule (Mycobutin) Take 2 Capsules by mouth once a day on Thursday, Thursday, and Thursday only. 30 Capsule 6 09/30/2023 Active Ethambutol HCl 400 MG Oral Tablet (Myambutol) Take 4.5 Tablets by mouth once a day on Thursday, Thursday, and Thursday only. 70 Tablet 6 09/30/2023 Active valACYclovir HCl 500 MG Oral Tablet (Valtrex) Take 1 Tablet by mouth in the morning. For transmission reduction. 30 Tablet 11 10/07/2023 Active DULoxetine HCl 30 MG Oral Capsule Delayed Release Particles (Cymbalta) Take 1 Capsule by mouth in the morning. With the 60 mg daily dose. 30 Capsule 5 10/15/2023 Active Additional Information Patient not taking.Reported on 01/14/2024 Fluticasone Propionate 50 MCG/ACT Nasal Suspension (Flonase) Administer 2 Sprays into nostril in the morning. 16 g 12 10/29/2023 Active Clindamycin HCl 150 MG Oral Capsule (Cleocin) Take 4 capsules prior to dental procedure 4 Capsule 11/10/2023 Active Montelukast Sodium 10 MG Oral Tablet (Singulair) Take 1 Tablet by mouth at bedtime. Takes in the evening 90 Tablet 3 12/11/2023 Active Naltrexone 3 MG OR Capsule Take 1.5mg daily for 1 week, then 3mg daily for 1 week then 4.5mg daily 30 Capsule 2 01/14/2024 Active Ezetimibe 10 MG Oral Tablet (Zetia)Indications: Dyslipidemia, goal LDL below 130 Take 1 Tablet by mouth in the morning. 90 Tablet 02/11/2024 Active DULoxetine HCl 60 MG Oral Capsule Delayed Release Particles (Cymbalta) Take 1 capsule by mouth in the morning 30 Capsule 02/24/2024 Active Breo Ellipta 200-25 MCG/ACT Inhalation Aerosol Powder Breath Activated INHALE 1 PUFF BY MOUTH IN THE MORNING 60 Each 11 03/04/2024 Active documented as of this encounter (statuses as of 03/21/2024) Active Problems Problem Noted Date Diagnosed Date COPD, group B, by GOLD 2017 classification 01/31 Overview: Per COPD GOLD Classification Encounter for long-term (current) use of medicat ions 05/14/2023 Age-related osteoporosis wit hout current pathological fracture 11/20/2022 Obesity, Class I, BMI 30.0-34.9 (see actual BMI) 04/02/2022 Arthritis of right hip 04/02/2022 Overview: "ready for surgery" Asthma-COPD overlap syndrome 04/02/2022 Recurrent major depressive disorder, in full rem ission 01/22/2022 Rheumatoid arthritis of mult iple sites with negative rheumatoid factor 09/20/2021 Sjogren's syndrome with keratoconjunctivitis sic ca 09/19/2020 Lumbar degenerative disc disease 03/24/2018 Generalized osteoarthritis of multiple sites Dyslipidemia 09/06/2016 Statin intolerance 10/04/2015 Periodic limb movements of sleep 12/09/2012 Mediastinal mass 12/09/2012 Overview: 2008 Stable (probable Resisiual thymus) Tobacco use disorder 11/20/2009 documented as of this encounter (statuses as of 03/21/2024) Resolved Problems Problem Noted Date Diagnosed Date Resolved Date COPD, group A, by GOLD 2017 classification 11/02/2023 02/04/2024 Overview: Per COPD GOLD Classification COPD, group A, by GOLD 2017 classification 05/04/2023 10/07/2023 Overview: Per COPD GOLD Classification COPD, group A, by GOLD 2017 classification 01/05/2023 04/07/2023 Overview: Per COPD GOLD Classification Prediabetes 11/17/2019 10/07/2023 Acute recurrent maxillary sinusitis 01/21/2018 03/24/2018 Monoarthritis of hand 07/16/20162016 Trochanteric bursitis of left hip 07/16/2016 03/18/2017 Primary osteoarthritis of fi rst carpometacarpal joint of left hand 07/16/201603/18 Serologic abnormality 07/16/20162016 Sicca syndrome 07/16/2016 03/18/2017 Adjustment disorder with depressed mood 10/04/2015 01/22/2022 Complicated bronchitis 07/04/201312/26 HSV (herpes simplex virus) a nogenital infection 01/31/2013 01/22/2022 Lower urinary tract infectious disease 01/12/2013 09/06/2015 Overview: ICD-10 update of inactive term Smoker 12/09/2012 04/06/2019 Depression 12/09/2012 10/04/2015 Asthma, moderate persistent 12/09/2012 04/02/2022 Chest discomfort 05/12/2012 12/09/2012 Abnormal ECG 05/12/2012 12/09/2012 History of MAC infection 05/12/2012 Bronchiectasis 05/12/2012 12/09/2012 History of PCR DNA positive for HSV1 04/12/2012 12/09/2012 Overview: GENITAL LESIONS Mediastinal neoplasm 04/11/2012 013 Overview: Anterior mediastinal lesion measuring 2.1x1.5cm, stable since 2008. No further CT f/u indicated at this time (per Dr. Julien or Dr. Batista) Candidiasis of genitalia in female 01/20/2012 12/09/2012 Leukocytosis 01/15/2012 12/09/2012 Candidal vulvovaginitis 07/29/201111/22 Overview: abicans HSV-2 infection 07/24/2011 12/09/2012 Genital HSV 07/24/2011 12/09/2012 Lipoma of back 06/23/2011 12/09/2012 ETD (eustachian tube dysfunction) 06/23/2011 12/09/2012 Chronic bronchitis 02/14/2011 3 Dyslipidemia, goal LDL below 130 02/14/2011 09/06/2016 OSTEOPENIA 02/14/2011 09/06/2016 Other osteoporosis without c urrent pathological fracture 11/20/2009 02/14/2011 Overview: ICD-10 update of inactive term Major depressive disorder 11/20/2009 Overview: ICD-10 update of inactive term BENIGN KASIA MEDIASTINUM- CT,PET 2008 11/20/2009 12/09/2012 ACUTE BRONCHITIS (COMPLICATED)-recurrent 11/20/2009 04/08/2012 Overview: bronchoscopy 08/31 CHRONIC CHOLECYSTITIS-lap. liz. 09/3009/28/2008 12/09/2012 documented as of this encounter (statuses as of 03/21/2024) Immunizations Name Administration Dates Next Due COVID-19 mRNA, LNP-s, No Pre serve, 2-Dose Series (SandLinks) 08/30/2020,08/09/2020 COVID-19, LNP-s, No Preserve , Salazar-sucrose, Ages 12+ (Pfizer) 07/18/2021 Covid-19, Mrna, Lnp-s, Pf, B ivalent, 30 Mcg, IM, 12 yrs and above (Pfizer) 04/04/2022 Pneumococcal Conjugate Vacc, 13 Valent (Prevnar) 10/23/2014 Pneumococcal Conjugate Vacci ne, 20-valent ([id number]) 01/26/2024 Pneumococcal Polysaccharide PPV23 (Pneumovax) 03/20/2021,06/07/2007 RSV Vac., Bivalent, Perfusio n F, Pf,0.5 Ml (Abrysvo) 07/17/2023 Season Influenza, Quad, PF, Adjuvanted, 65+ Yrs, IM (FLUAD) 03/12/2020 Seasonal Influenza Vac., MDV , IM, 0.5 mL (Fluzone) 03/05/2021,07/07/2016,05/16/2014,05/19,04/21/2011 Seasonal Influenza Virus Vac cine, Unspecified Formulation 03/05/2021,03/12/2020,04/06/2019,06/24,05/28/2017,07/07/2016,05/19/2013 ,04/21/2011 Seasonal Influenza, PF, 6 M & above, IM , (FluLaval or Fluzone) 04/06/2019,06/24/2018,05/28/2017 Seasonal Influenza, Quadriva lent Hd (Fluzone Hd) 05/07/2023,04/23/2022 TDAP (age 10 and older)(Boostrix) 07/28/2022 TDAP, Age 7 and older, IM (Adacel) 02/14/2011 Zoster Vaccine Recombinant (Shingrix) 11/24/2019 ,05/23/2019 documented as of this encounter Social History Tobacco Use Types Packs/Day Years Used Date Smoking Tobacco: Every Day Cigarettes 0.5 47.8 Started: 1977 Smokeless Tobacco: Never Alcohol Use Standard Drinks/Week Comments No 0 (1 standard drink = 0.6 oz pur e alcohol) PHQ-2 Answer Date Recorded PHQ Adult Total Score 1 01/05/2024 Hunger Vital Sign Answer Date Recorded Within the past 12 months, y ou worried that your food would run out before you got the money to buy more. Never true 01/05/20 24 Within the past 12 months, t he food you bought just didn't last and you didn't have money to get more. Never true 01/05/2024 Childcare Answer Date Recorded Do you feel overwhelmed with taking care of a child, family member or friend? No 01/05/2024 Does your family need help f inding childcare? (Household - for ages 0-17 years) Not on file 01/05/2024 Clothing Answer Date Recorded Have you been unable to get clothing when it was really needed? No 01/05/2024 Is your family able to get c lothes or diapers when needed? (Household - for ages 0-17 years) Not on file 01/05/2024 Personal Safety Answer Date Recorded Do you feel unsafe or have concerns for your saf ety? No 01/05/2024 Do you have concerns for you r family's safety? (Household - for ages 0-17 years) Not on file 01/05/2024 Utilities Answer Date Recorded Do you have trouble paying y our heating, water, or electric bill? No 01/05/2024 Is your family able to pay t he heat, water, or electric bill? (Household - for ages 0-17 years) Not on file 01/05/2024 Does your family have access to good internet? (Household - for ages 0-17 years) Not on file 01/05/2024 Employment Status Answer Date Recorded Are you unemployed or without regular income? No 01/05/2024 Does the household have a re gular source of income? (Household - for ages 0-17 years) Not on file 01/05/2024 Social Connections Answer Date Recorded How often do you feel lonely or isolated from th ose around you? Rarely 01/05/2024 Financial Resource Strain Answer Date R ecorded Do you have any trouble payi ng for your medications, or do you think you might in the future? No 01/05/2024 Does your family have troubl e paying for medicine? (Household - for ages 0-17 years) Not on file 01/05/2024 Transportation Needs Answer Date Record ed Do you have trouble getting a ride to medical visits or work? (Adult - for ages 18 years and over) Not on file 01/05/2024 Does your family have a hard time getting a ride to doctors visits? (Household - for ages 0-17 years) Not on file 01/05/2024 Has lack of transportation k ept you from medical appointments, meetings, work, or from getting things needed for daily living? Check all that apply. No 01/05/2024 Do you (or your family) have trouble finding or paying for a ride (transportation)? (Household - for ages 0-17 years) Not on file 01/05/2024 Housing Stability Answer Date Recorded Do you currently live in a s helter or have no steady place to sleep at night? No 01/05/2024 Do you think you are at risk of becoming homeless? (Adult - for ages 18 years and over) Not on file 01/05/2024 Does your family worry about paying for your home or becoming homeless? (Household - for ages 0-17 years) Not on file 0 01/05/2024 Are you homeless or worried that you might be in the future? No 01/05/2024 Are you (or your family) shahida eless or worried that you might be in the future? (Household - for ages 0-17 years) Not on file Food Insecurity Answer Date Recorded Do you need food for this week? No 01/05/2024 Are you able to get enough f ood for your family? (Household - for ages 0-17 years) Not on file 01/05/2024 Does your family need food t his week? (Household - for ages 0-17 years) Not on file 01/05/2024 Do you always have enough fo od for your family? (Household - for ages 0-17 years) Not on file 01/05/2024 Sex and Gender Information Value Date Recorded Sex Assigned at Female 09/22/2018 1:42 PM EDT Gender Identity Female 09/22/2018 1:42 PM EDT Sexual Orientation Straight 09/22/2018 1: 42 PM EDT Job Start Date Occupation Industry Not on file Not on file Not on file documented as of this encounter Plan of Treatment Upcoming Encounters Date Type Department Care Team (Late st Contact Info) Description 03/25/2024 10:00 AM EDT Telemedicine Pulmonary Medicine, [place] [address] [place] [address] Md Ines Curry MD [address] [place] [address] 04/20/2024 11:40 AM EST Office Visit Family Practice [facility] [address] [facility] [place] [address] Clinton Grimes MD [address] [facility] [place] [address] 11/22/2024 10:30 AM EDT Imaging Radiology, [place] [address] [address] [place] [address] 01/06/2025 8:00 AM EDT Telemedicine Ancillary [facility] [address] [facility] [place] [address] [facility], Nurse Annual Wellness [address] [place] [address] 01/17/2025 11:20 AM EDT Office Visit Rheumatology [place] [address] [place] [address] Hermelindo Edwards MD [address] [place] [address] [place] [address] Scheduled Orders Name Type Priority Associated Diagnoses Orde r Schedule MYCODE SUBSEQUENT ADULT Lab Routine MyCode Research Other*[id number] Every 6 Months for 2 Occurrences starting 03/21/2024 until 04/10/2025 Scheduled Procedures Name Priority Associated Diagnoses Date/Ti me COLONOSCOPY FLEXIBLE PROXIMA L DIAGNOSTIC Recall Family history of colon cancer Health Maintenance Due Date Last Done Comments Cologuard 11/22/1999 Sigmoidoscopy 11/22/1999 Fecal Occult Blood Test 12/31/2011 12/30/2010 Colonoscopy 05/14/2022 05/14/2017, 04/25, 01/21/2012, Additional history exists Colorectal Cancer Screening 05/14/2022 DISCUSS TOBACCO CESSATION (REFER TO SMARTSET #3291) 04/02/2023 04/02/2022 (Course Completed), 03/03/2016, 09/06/2015 COVID-19 Vaccine ( season) 2024 04/04/2022, 07/18/2021, 08/30/2020, Additional history exists Influenza Vaccine (FLU shot) (#1) 2024 05/07/2023, 04/23/2022, 03/05/2021, Additional history exists Mammogram 05/07/2024 05/07/2023, 04/24, 04/30/2022, Additional history exists DXA Scan 11/19/2024 11/19/2022, 10/24, 07/05/2020, Additional history exists Adult Wellness Visit 01/04/2025 01/05/2024, 12/23/2022, 12/17/2021 Depression Monitoring 01/04/2025 01/05/2024 O2 ASSESSMENT COMPLETED IN PAST YEAR FOR COPD 01/25/2025 01/26/2024 Diabetes Screening 01/25/2027 01/26/2024, 0 12/08/2023, 10/01/2023, Additional history exists Lipid Panel 11/20/2027 11/19/2022, 08/24, 02/27/2016, Additional history exists DTap/Tdap Vaccines (3 - Td or Tdap) 07/28/2032 07/28/2022, 02/14/2011 RETIRED - COLONOSCOPY-EVERY 5 YRS AGES 18-100 Discontinued 05/14/2017, 05/14/2017, 01/21/2012, Additional history exists Zoster Vaccines Completed 11/24/2019, 05/23/2019 Alpha-1 Antitrypsin Completed 02/07/2022 VITAMIN D LEVEL ONCE IN A LIFETIME-USE SMARTSET# [id number] Completed 02/17/2023, 04/02/2022, 09/21/2017, Additional history exists Lung Cancer Screening Completed 01/05/2024 , 07/17/2023, 03/29/2021, Additional history exists Pneumococcal Vaccine: 65+ Years Completed 01/26/2024, 03/20/2021, 10/23/2014, Additional history exists HPV (Gardasil) Vaccine Aged Out No lo nger eligible based on patient's age to complete this topic Hepatitis B Vaccine Aged Out No longe r eligible based on patient's age to complete this topic MENINGOCOCCAL (MENACTRA/MENVEO) Aged Out No longer eligible based on patient's age to complete this topic documented as of this encounter Medical Devices Not on filedocumented as of this encounter Visit Diagnoses Diagnosis MyCode Research Other*[id number] documented in this encounter Additional Health Concerns Infection Onset Date Last Indicated Resolved Time Tuberculosis Rule-Out 12/10/2023 12/10/2023 documented as of this encounter Care Teams Emergency Management System Director Relationship Specialty Start Date End Date Clinton Grimes MD [address] [place] [address] PCP - General Family Medicine 09/03/15 documented as of this encounter
[2024-03-22 07:13] VITALS: BP 116/68; PULSE 79; O2SAT 97
[2024-03-22 07:24] LABS: Basophils # (auto) 0.08 K/uL (0.00-0.20); Basophils % (auto) 0.5 %; Eosinophils # (auto) 0.23 K/uL (0.00-0.50); Eosinophils % (auto) 1.5 %; Hematocrit (blood only) 38.7 % (37.0-47.0); Hemoglobin 12.8 g/dl (12.0-16.0); Immature Granulocytes # (auto) 0.07 K/uL (0.01-0.20); Immature Granulocytes % (auto) 0.5 %; Lymphocytes # (auto) 3.95 K/uL (1.20-3.40); Lymphocytes % (auto) 25.9 %; Mean Corpuscular Hemoglobin 30.1 pg (25.0-34.0); Mean Corpuscular Hgb Conc 33.1 g/dL (32.0-36.0); Mean Corpuscular Volume 91.1 fL (80.0-100.0); Mean Platelet Volume 10.2 fL (9.4-12.4); Monocytes # (auto) 1.36 K/uL (0.11-0.59); Monocytes % (auto) 8.9 %; Neutrophils # (auto) 9.55 K/uL (1.40-6.50); Neutrophils % (auto) 62.7 %; Platelet Count 191 K/uL (130-400); RDW Coefficient of Variation 13.9 % (11.5-14.5); RDW Standard Deviation 46.5 fL (36.4-46.3); Red Blood Count 4.25 M/uL (4.20-5.40); White Blood Count 15.24 K/ul (4.8-10.8)
[2024-03-22 07:33] LABS: BUN Creatinine Ratio 26.4 (10-20); Calcium 8.6 mg/dl (8.6-10.3); Creatinine Clr Calc Pharmacy 72.8 ml/min; Potassium 3.9 mmol/L (3.5-5.1)
[2024-03-22] MEDS: dexAMETHasone 10 MG in SYRINGE 0 ML IV SCH (08:32)
[2024-03-22] MEDS: MAGNESIUM OXIDE 400 MG TAB PO SCH (08:38)
--- NOTE | 2024-03-22 08:56 | Orthopedic Progress Note ---
Date of Service March 22, 2024 Assessment & Plan (1) Status post right hip replacement: Plan: 68-year-old female postop day 1 from right hip replacement doing pretty well. Pains controlled. Hips located. She is neurologically intact. Hoping to go home today. Plan: 1. DVT prophylaxis including thigh-high teds, SCDs, aspirin twice a day. 2. PT/OT. Weight-bear as tolerated. Right total hip protocol. 3. Pain control doing okay with current pain regimen. 4. Disposition. Plan is to discharge to home with home health if she does okay in therapy today. Admission and Anticipated Discharge Date Admission Date: March 21, 2024 Subjective 68-year-old female postop day 1 from a right hip replacement. That she is doing pretty well this morning. Had a reasonable night. Pains controlled. No chest pain or shortness of breath. Not feeling dizzy or lightheaded. Physical Exam Physical Exam: Physical exam shows a pleasant middle-age female. She is lying in bed looks pretty comfortable this morning. Examination of the right hip and leg reveals the dressing be clean dry and intact. Thigh is soft and supple. Leg lengths are equal. She can dorsiflex and plantarflex her foot appropriately. Respiratory: normal respiratory effort, lungs clear to auscultation Cardiovascular: RRR, no murmur, no edema Gastrointestinal (Abdomen): normal bowel sounds, soft, nontender, no hepatosplenomegaly Results & Data Vital Signs (Past 12 Hours) Vital Signs Temp Pulse Resp BP Pulse Ox O2 Del Method 03/22/24 07:09 36.6 C 79 18 116/68 97 Room Air 03/22/24 03:20 36.6 C 87 18 121/67 96 Room Air 03/21/24 23:48 36.5 C 77 18 110/68 94 Room Air Laboratory Results Hemoglobin is 12.8. Hematocrit is 38.7. Electrolytes are stable.
--- NOTE | 2024-03-24 07:48 | Discharge Summary ---
Date of Service March 24, 2024 Admission HPI (Per Admitting) . Patient is a 67-year-old female who now presents for surgical treatment right hip. 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 She did have her left hip replaced back in October 2020 and is done well with this. Over the past year she developed increased pain discomfort in her right hip. She describes groin pain and thigh pain. She limps all the time. The more she is up and onto the more painful it is in the more she limps. Pains become more debilitating. She had tempora response to an injection. She is ready to have her hip fixed. Admission Exam (Per Admitting) . Physical examination is a pleasant middle-aged female. She looks to be in reasonably good health. Examination of the right hip and leg reveal patient walks with a bit of an antalgic gait. Including limps on the right side. She is about half centimeter shorter on the right compared to the left. She got very stiff hip with internal rotation to -5. This does recreate her pain. Negative straight leg raise. Examination of the left hip reveals a well-healed incision. She got painless hip motion. Principal Diagnosis Same as "Discharge Diagnosis" noted below under Discharge Instructions. Discharge Data Procedures Performed Operation Date: 03/21/24 07:00 Actual Procedures p Right Total Hip Arthroplasty, Uncemented(Right) - Donte Ferguson MD Hospital Course (1) Status post right hip replacement: This is a 68 year old patient admitted on 03/21/24 and underwent total hip arthroplasty. She tolerated the procedure well and there were no complications. Transferred to the PACU post op and later to the orthopedic floor for further care. She was given ancef for antibiotic prophylaxis. She was also given ELIZABETH stockings, SCDs, and aspirin for DVT prophylaxis. Hemoglobin, hematocrit, and vital signs were monitored during her hospital stay and remained stable. Did not require any blood transfusions. There were no complications during her hospital stay. By post op day #1 the patient was tolerating a regular diet, pain was reasonably controlled with oral pain medicine, and she was participating in physical therapy. On post op day #1 the patient was discharged home and set up with home health care. She was given printed discharge instructions including prescriptions for extra strength tylenol, aspirin, ketorolac, zofran, senokot, and tramadol. Continue hip precautions. Continue physical therapy, weight bearing as tolerated. Continue ELIZABETH stockings. Follow up approximately 2 weeks post op or sooner if there are problems or concerns. PG Care Time/CCT Total # of Minutes Spent Total Time Spent with Patient: : Discharge Plan Discharge Items Patient Disposition: Home - Home Health Services Reason For Visit: Right Hip Degenerative Joint Disease Discharge Diagnosis: Right hip Replacement Activity: Per Instructions section Activity Comment: Follow/Obey hip precautions at all times Weightbearing: Full weightbearing Weightbearing Comment: Weightbear as tolerated obeying hip precautions at all times. Non-emergency contact: Surgeon Call non-emergency contact if: you have any medication questions Follow-up/Referrals: Clinton Grimes MD [Primary Care Provider] - Diet: Regular Addtl Attending Provider Instructions: ACTIVITY RECOMMENDATIONS: Diet: * You may resume previous diet. Physical Therapy: * Aggressive physical therapy is not usually needed. You will learn to take care of yourself safely and walk. * Follow the "Hip Precautions Instructions." * In some cases, the social welfare administrator at the hospital will arrange to have a therapist come to your house for the first couple of weeks to help you learn these skills. * You need to practice on your own or with the help of a family member as needed. * When you learn these skills, most of the therapy can be done on your own. Home Exercise: * You were shown a series of exercises in the hospital. Do these exercises three to four times each day including the exercises you were shown in physical therapy. Walking: * Get up and walk several times each day. For the first four weeks, try not to stand or walk for more than one hour at a time. If you do stand or walk for more than one hour, you will not hurt anything, but your leg will likely swell. * As you feel comfortable, you may change from the walker or crutches to a cane and then to independent walking. MEDICATIONS: New Medicine: * You will likely be taking one or more of these medicines: 1. Tramadol - Take, as directed, when you need it, every six hours to control your pain. 2. Aspirin - Thins your blood to lessen the chance of forming a blood clot. * The most common side effects of pain medicine and iron are nausea and constipation. If nausea or constipation is too much of a problem or if you have any questions about your new medicines or doses, call [facility] at . We will try to help you manage these issues. "VERY IMPORTANT TO READ AND REVIEW" Pain: * The immediate post-operative period after hip replacement surgery is often quite painful. * You are given a prescription for pain medicine. You should take it, as directed, when you need it, especially before physical therapy and before going to bed. Pain that interferes with sleep is very common and can last several months. * You will likely need pain medicine for the first two to four weeks. It will not stop all of the pain. The pain will lessen and as you feel better, you may change to milder pain medicine such as Tylenol. * The most common side effects of pain medicine are nausea and constipation, so don't take more than you need. SPECIAL CARE INSTRUCTIONS: TEDs/Elastic Stockings: * The white elastic stockings help limit swelling and prevent blood clots from forming in your legs. The more you wear them, the more they work. * Wear them for six weeks. Incision Site Care: * Remove dressing postoperative day 2 and then shower. Keep direct shower pressure off the incision site. * After showering, cover joanna with dry gauze and change daily or more frequently if the dressing is getting saturated with drainage. * May completely stop using bandage if wound is dry and no drainage * Joanna are removed between 2 and 3 weeks post-op. If your follow-up appointment is made before 2 weeks, please have your appointment re- scheduled. It is too early to remove the joanna. Prevention of Infection: * Take antibiotics one hour before any dental cleaning, dental work, urological procedure, gastrointestinal procedure or any invasive surgery in order to prevent your new joint from getting infected. * You may get the antibiotics from the doctor performing the procedure or you may call our office at before and we will call in a prescription to the pharmacy of your choice. Things to Watch For: * Drainage from the incision site that occurs more than one week after your surgery. * Severely increased leg pain or swelling. * Increased redness at the incision site. * Fever above 102 degrees Fahrenheit. * Unusual chest pain or shortness of breath. * Unusual pain or burning with urination. Call [facility] at with any of the above problems or if you have any questions about your medicines or recovery. FOLLOW UP VISIT: Make an appointment to see your doctor for approximately two weeks after surgery for a progress check and staple removal by calling the office at . Pending Studies at Discharge: No Stand-Alone Forms: My [facility] Run My Errands, Smoking Cessation Medications and DC Order Prescriptions: Continued (DME) Elizabeth Loaiza [facility] [place] See Rx Instructions .MEDSUPPLY Qty: 1 0RF Rx Instructions: As directed (DME) Jeffy Mccracken [facility] [place] See Rx Instructions .MEDSUPPLY Qty: 1 0RF Rx Instructions: As directed tramadol 50 mg tablet 50 - 100 mg PO Q8H PRN (Reason: pain) Qty: 40 0RF Rx Instructions: Take as needed for pain. Do not take more than 6 tablets per day ondansetron 4 mg tablet,disintegrating 4 mg PO Q8 PRN (Reason: nausea) Qty: 20 1RF Rx Instructions: Take as needed for nausea ketorolac 10 mg tablet 10 mg PO Q6 5 Days Qty: 20 0RF Rx Instructions: Take 4 times per day with food for 5 days to lessen pain and swelling. sennosides [Senokot] 8.6 mg tablet 8.6 mg PO BID 14 Days Qty: 28 0RF Rx Instructions: Take two times a day to prevent/treat constipation aspirin [Gareth Low Dose Aspirin] 81 mg tablet,delayed release (DR/EC) 81 mg PO BID 45 Days Qty: 90 0RF Rx Instructions: Take to prevent blood clots. (DME) Jeffy Mccracken [facility] [place] See Rx Instructions .MEDSUPPLY Qty: 1 0RF Rx Instructions: As directed montelukast 10 mg tablet 10 mg PO HS ezetimibe [Zetia] 10 mg tablet 10 mg PO QAM hydroxychloroquine [Plaquenil] 200 mg tablet 400 mg PO QAM valacyclovir 500 mg tablet 500 mg PO DIRECTED PRN (Reason: Cold Sores) Rx Instructions: x 5 days Tums 300 mg (750 mg) Tablet,Chewable 600 mg PO UD PRN (Reason: Acid Reflux) coenzyme Q10 [Co Q-10] 100 mg Capsule 100 mg PO DIRECTED Rx Instructions: Takes daily 3 weeks/month resveratrol 250 mg Capsule 250 mg PO QAM multivitamin Tablet 1 tab PO QAM duloxetine 60 mg Capsule,Delayed Release(Dr/Ec) 60 mg PO QPM fluticasone furoate-vilanterol [Breo Ellipta] 200-25 mcg/dose Blister With Device 1 inh INHALATION DAILY pseudoephedrine-DM 60-30 mg Capsule 1 cap PO HS PRN (Reason: Cough) Patient Comments: take almost every night rifabutin [Mycobutin] 150 mg Capsule 300 mg PO 3XWK Patient Comments: 2 capsules on thursday and thu, capsules are 150 mg each. ethambutol 400 mg Tablet 1,800 mg PO 3XWK Patient Comments: 400 mg tablets, take 4 and one half tabs by mouth on thu and thu albuterol sulfate [Ventolin HFA] 90 mcg/actuation Hfa Aerosol Inhaler 1 - 2 inh INHALATION Q4H PRN (Reason: Dyspnea) Patient Comments: unknown when used last , a long time ago fluticasone propionate 50 mcg/actuation [place],Suspension 2 spray INTRANASAL UD PRN (Reason: Congestion) Rx Instructions: administer into each nostril azithromycin 500 mg Tablet 500 mg PO 3XWK Patient Comments: once daily on thu, thu and thu Naltrex 4.5 mg Capsule 4.5 mg PO HS Patient Comments: for pain Arthromax 2 tab PO QAM Rx Instructions: PROMOTES HEALTHY JOINT FUNCTION AND MOBILITY. ascorbic acid (vitamin C) [Vitamin C] 1,000 mg Tablet 1 g PO DAILY triamcinolone acetonide 0.1 % Ointment 1 applic TOPICAL BID PRN (Reason: RED, RAISED & ITCHY SKIN RASH) Rx Instructions: USES THURSDAY THROUGH THURSDAY, WHEN NEEDED. nystatin 100,000 unit/gram Cream 1 applic TOPICAL TID PRN (Reason: Skin Irritation) clotrimazole-betamethasone 1-0.05 % Cream 1 applic TOPICAL DIRECTED PRN (Reason: GROIN & FINGERS NEEDED) magnesium oxide 500 mg Tablet 500 mg PO DAILY betamethasone dipropionate 0.05 % Cream 1 applic TOPICAL BID PRN (Reason: SKIN RASH) furosemide [Lasix] 20 mg Tablet 20 mg PO QAM PRN (Reason: Fluid Retention) ketoconazole 2 % Cream 1 applic TOPICAL DAILY PRN (Reason: RIGHT MIDDLE FINGER, FUNGAL INFECTION) zoledronic [id number] [Reclast] 5 mg/100 mL Piggyback 1 ea IV YEARLY Patient Comments: second dose due to end of Feb 2024 on hold per rheumatology at current. omega 1-[id number] oil 900-1,400 mg Capsule,Delayed Release(Dr/Ec) 1 cap PO QAM calcium carbonate-vitamin D3 [Calcium 600 with Vitamin D3] 600 mg-12.5 mcg (500 unit) Capsule 1 cap PO BID Cold Care-Herbal Liquid 1 - 2 tsp PO BID PRN (Reason: NEEDED) Ehr-Herbal Liquid 1 tbsp PO .1-3 X DAILY PRN (Reason: .) Patient Comments: not regularly Gi Complete-Herbal Liquid 1 - 2 tsp PO .2-3 X DAILY PRN (Reason: NEEDED) Patient Comments: not regularly Kortislo 1 tbsp PO UD Patient Comments: have not been taking regularly Prebiotic/Probiotic For 50+ 1 tab PO QAM Vitamin K2 W/Vitamin K1 1 tab PO Q OTHER DAY clindamycin HCl 300 mg capsule 600 mg PO DIRECTED PRN (Reason: 1 HR PRIOR TO DENTAL WORK.) Rx Instructions: take 2 capsules one hour prior to dental work Discontinued acetaminophen [Tylenol Extra Strength] 500 mg tablet 1,000 mg PO TID 30 Days Qty: 180 0RF Rx Instructions: Take 3 times per day to lessen pain. celecoxib [Celebrex] 200 mg capsule 200 mg PO QAM acetaminophen [Tylenol Extra Strength] 500 mg Tablet 500 - 1,000 mg PO Q8H PRN (Reason: ARTHRITIS PAIN) Krames/Other Patient Handouts: Hip Replace Home Recovery Admission Data Admit Date/Time: 03/21/24 08:34 Attending Provider: Donte Ferguson Admit Provider: Donte Ferguson Primary Care Provider: Clinton Grimes Other Providers: [facility],Home Health; [facility] Other Interventions: Discharge Summary Assessment (RN) Last Done: 03/22/24 11:03
== END 2024-03-22 11:47 | disposition home health service (06) ==
LOC: 3E 05:02 → ASU 05:02